=== PATIENT | male | born 1935 | race Caucasian/White ===

== ENCOUNTER 2020-06-21 10:23 | Inpatient (IN) | payer MEDICARE ==
[~2020-06-21 10:23] MED LIST: Iopamidol-370 76% 500 ML 1 ML ONE
--- NOTE | 2020-06-21 10:42 | RAD ---
XR Chest 1 View Portable History: Dyspnea Comparison: None. Findings: Heart size is enlarged. Large pleural effusions. Extensive airspace opacities throughout th e lungs. No pneumothorax. Possible right-sided calcified pleural plaques. Multiple pulmonary nodules. Impression: 1. Mild decompensated congestive heart failure. 2. Multiple pulmonary nodules concerning for metastasis. 3. Multiple right-sided calcified pleural plaques.
[2020-06-21 11:04] LABS: Hemoglobin 7.8 g/dL (14.0-18.0); Mean Corpuscular HGB CONC 29.6 g/dL (32.0-36.0); Mean Corpuscular Hemoglobin 20.5 pg (27.0-31.0); Mean Corpuscular Volume 69.4 fL (78.0-98.0); Mean Platelet Volume 8.2 fL (7.4-10.4); Platelet Count 380 thou/uL (130-400); RBC Distribution Width 18.1 % (11.5-14.5)
[2020-06-21 11:19] LABS: ALT (SGPT) 48 U/L (8-55); AST (SGOT) 74 U/L (5-34); Albumin 2.8 g/dL (3.4-4.8); Alkaline Phosphatase 122 U/L (40-110); Anion Gap 16 mmol/L (10-20); BUN (Urea Nitrogen) 18 mg/dL (8.4-25.7); Bilirubin, Total 1.3 mg/dL (0.2-1.2); CK (CPK) 307 U/L (30-200); Calc. Creatinine Clearance 0 mL/min (70-130); Calcium 8.2 mg/dL (7.8-10.44); Carbon Dioxide 19 mmol/L (23-31); Chloride 100 mmol/L (98-107); Globulin 2.3 g/dL (2.4-3.5); Glucose 71 mg/dL (83-110); Lipase 7 U/L (8-78); Potassium 3.8 mmol/L (3.5-5.1); Protein, Total 5.1 g/dL (5.8-8.1); Sodium 131 mmol/L (136-145)
[2020-06-21 11:39] LABS: Burr Cells SLIGHT = 2-5 cells (100X) (0-1/hpf); Elliptocytes SLIGHT = 2-5 cells (100X) (0-1/hpf); Eosinophils 1 % (0-10); Hypochromia MODERATE=16-30 cells (100X) (0-5/hpf); Lymphocytes 29 % (21-51); MDiff Complete? YES; Microcytosis MODERATE=15-30 cells (100X) (0-5/hpf); Monocytes 8 % (0-10); Neutrophil 62 % (42-75); Ovalocytes SLIGHT = 2-5 cells (100X) (0-1/hpf); Platelet Morphology Comment Appears Adequate; Polychromasia SLIGHT = 2-3 cells (100X) (0-2/hpf); Reflex for Review?? NO
--- NOTE | 2020-06-21 13:54 | CT ---
CT HEAD WITHOUT CONTRAST: INDICATION: Trauma. Further history states falling with injury to the head and face. FINDINGS: There is mild cortical volume loss. There is no evidence of intracranial hemorrhage. No mass or inf arct. Sinuses and mastoids are clear. There is no evidence of fracture. IMPRESSION: No acute abnormality identified. POS: AGW
--- NOTE | 2020-06-21 16:05 | CT ---
CT CHEST, ABDOMEN, AND PELVIS WITH CONTRAST: Indications: Fall with trauma and injury to chest and abdomen. Comparison: CT abdomen/pelvis, 06-08-2020. That exam revealed numerous pulmonary nodules in the lung b ases with bilateral effusions. Liver lesions were present on that exam. FINDINGS: CT CHEST: There is cardiomegaly with vascular congestion. Large bilateral effusions appear unchanged from 2020. There are numerous pulmonary nodules bilaterally. There is a large area of confluent opacity in the right upper lobe measuring up to 4 cm and there is a focal area of confluent opacity in the left upper lobe measuring 3.4 cm. There are other areas of confluent opacity seen in the middle lobes and lower lobes. These areas of confluent opacity probably represent dense areas of consolidation rather than mass lesions, although a large mass lesion associated with the other numerous nodules may be pr esent. There is dense bibasilar compressive atelectasis with air bronchograms associated with these l arge effusions. Mediastinum shows adenopathy in the mediastinum and hilar regions. Osseous structures show osteopenia. The vertebral bodies maintain height. No definite acute rib fract ure. IMPRESSION: 1. Large bilateral effusions and numerous bilateral pulmonary nodules consistent with diffuse pulmona ry mets as noted on the recent CT abdomen/pelvis of 06-08-2020. There are scattered areas of focal con solidation throughout the lungs which could represent areas of consolidated pneumonia, atelectasis or metastatic lesions. 2. There is mediastinum and hilar adenopathy. CT ABDOMEN AND PELVIS: There are numerous low density lesions in the liver which were noted on recent CT and are unchanged. Spleen and pancreas unremarkable. Large left renal cyst is stable. Aorta is calcified without aneurysm. Small bowel loops are normal caliber. Mucosal prominence and luminal narrowing in the region of the rectum is noted as described on the rec ent exam. Neoplasm at this site should be excluded. The CT abdomen/pelvis has not significantly changed when compared to 06-08-2020 exam. IMPRESSION: 1. No acute process. Stable findings when compared to 06-08-2020. 2. Findings were discussed with Dr. Cadena. POS: AGW
[2020-06-21] MEDS ORDERED: HYDROcodone/Acetaminophen 5/325 mg Tablet ONE (16:12)
[2020-06-21] MEDS ORDERED: Furosemide 40 MG/4 ML VIAL ONE (17:04)
[2020-06-21] MEDS ORDERED: Aspirin Chewable 81 MG TAB ONE (17:07)
[2020-06-21] MEDS ORDERED: Acetaminophen 650 MG Suppository PR PRN (18:09)
[2020-06-21] MEDS ORDERED: Furosemide 40 MG/4 ML VIAL SLOW IVP SCH (18:30)
[2020-06-21 18:34] LABS: Troponin I 0.018 ng/mL (< 0.028)
[2020-06-21] MEDS: Famotidine 20 MG TAB PO SCH (22:30)
--- NOTE | 2020-06-21 23:13 | PDOC.HHP ---
Hospitalist HPI History of Present Illness: ADMISSION DATE:06/21/20 TIME OF ASSESSMENT:1800 PRIMARY CARE PHYSICIAN:Dr. Muro CHIEF COMPLAINT: SOB and weakness HPI: This is an 84-year-old gentleman who presents to the emergency department complaints of shortness of breath which has progressively worsened over the last 2 to 3 days. The patient apparently has also been experiencing generalized weakness and has had multiple falls for the last 2 weeks. He did sustain an injury to his head but denies any loss of consciousness. He states that he does not experience any preceding chest pain, lightheadedness or dizziness but feels that his legs suddenly give out. Denies any extremity numbness. He notices weakness being more prevalent in the right knee. He states his breathing has significantly improved since arriving to the emergency department after given medications. He was placed on supplemental oxygen on 2 L by nasal cannula which was then increased to 6 L due to sats being in the low 90s. Currently his saturations have maintained in the 95 to 96% range. He denies having any recent cough, hemoptysis or any fevers, chills or sweats. States he was told in May that he had changes consistent with asbestosis exposure on imaging obtained by his primary care physician. 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 He did not have any further work-up associated with this. Patient also reports having a cardiac stress test done recently and states he was not able to complete the test due to severe orthopnea. He states this tends to be an issue at home which has started in the last week or so causing him difficulty sleeping at night. He has started sleeping while sitting upright. He has noted increasing lower remedy edema. Denies being on diuretics in the past. Denies any known history of heart failure. ROS: He reports having abdominal distention and bloating with minimal flatus but denies having any nausea or vomiting. Is had minimal p.o. intake due to a decreased appetite and has had a significant amount of weight loss. Denies any abdominal pain or cramping. No urinary symptoms. All other review of systems apart from what is mentioned above are negative. ED COURSE: Initial presentation the patient had sats of 92% on room air and is now at 95% on 6 L by nasal cannula. His blood pressure has ranged from 109-118 systolic. An EKG was done showing A. fib with controlled ventricular response, heart rate of 73. Patient denies any known history of A. fib. Due to head injuries with the frequent falls the last several days he had a CT of the head done which showed no acute abnormality. He had a chest x-ray done demonstrating mild decompensated CHF with multiple pulmonary nodules concerning for metastasis and multiple right-sided calcified pleural plaques. Further imaging obtained with a CT of the chest abdomen and pelvis demonstrated large bilateral effusions and numerous bilateral pulmonary nodules consistent with diffuse pulmonary metastases which were seen on imaging done June 08, 2020. There are scattered areas of focal consolidation throughout the lungs felt to represent areas of consolidated pneumonia, atelectasis or metastatic lesions. There was hilar and mediastinal adenopathy. No acute findings in the abdomen or pelvis but there were numerous low-density lesions in the liver that appeared stable compared to prior CT. Also prominence and luminal narrowing in the region of the rectum noted once again. There is a question of whether or not the patient has a diagnosis of metastatic rectal cancer but apparently no investigations or further work-up was done since he imaging done in May. Patient expresses very little knowledge of plans to undergo any type of work-up blood along treatment but open to being evaluated by the oncology team. The emergency department the patient received 324 mg of aspirin. Had been given a dose of furosemide 40 mg IV. Also received hydrocodone 5/325 mg p.o. Allergies/Adverse Reactions: Allergy/AdvReac Type Severity Reaction Status Date / Time No Known Allergies Allergy Verified 06/21/20 17:41 Past History: PAST MEDICAL HISTORY: 1. Hyperlipidemia 2. Hypertension PAST SURGICAL HISTORY: 1. Cholecystectomy SOCIAL HISTORY: He lives alone and is independent at baseline however due to general deconditioning and abnormal weight loss for the last several days with r ecurrent falls his grandson is working on getting a tubing assembler to watch over him at home. He reports smoking in the past but quit 40 years ago. Denies any alcohol consumption or drug use. Reports exposure to asbestosis. FAMILY HISTORY: Noncontributory Hospitalist Exam General Appearance: NAD, awake alert Eye: PERRL, anicteric sclera ENT: normocephalic atraumatic, no oropharyngeal lesions Neck: supple, no lymphadenopathy Heart: normal peripheral pulses, irregular Respiratory: no wheezes, normal chest expansion, no tachypnea Respiratory - other findings: Diminished at the bilteral bases Gastrointestinal: soft, non-tender, no guarding, diminished bowl sounds Gastrointestinal - other findings: abdomen distended Hospitalist Results Result Diagrams: 06/21/20 10:44 06/21/20 10:44 Lab results: Laboratory Last Values WBC 12.0 thou/uL (4.8-10.8) H 06/21/20 10:44 RBC 3.80 mill/uL (4.70-6.10) L 06/21/20 10:44 Hgb 7.8 g/dL (14.0-18.0) L 06/21/20 10:44 Hct 26.4 % (42.0-52.0) L 06/21/20 10:44 MCV 69.4 fL (78.0-98.0) L 06/21/20 10:44 MCH 20.5 pg (27.0-31.0) L 06/21/20 10:44 MCHC 29.6 g/dL (32.0-36.0) L 06/21/20 10:44 RDW 18.1 % (11.5-14.5) H 06/21/20 10:44 Plt Count 380 thou/uL (130-400) 06/21/20 10:44 MPV 8.2 fL (7.4-10.4) 06/21/20 10:44 Neutrophils % (Manual) 62 % (42-75) 06/21/20 10:44 Lymphocytes % (Manual) 29 % (21-51) 06/21/20 10:44 Monocytes % (Manual) 8 % (0-10) 06/21/20 10:44 Eosinophils % (Manual) 1 % (0-10) 06/21/20 10:44 Lymphocytes # Not Reportable 06/21/20 10:44 Hypochromia MODERATE=16-30 cells (100X) (0-5/hpf) H 06/21/20 10:44 Plt Morphology Comment Appears Adequate 06/21/20 10:44 Polychromasia SLIGHT = 2-3 cells (100X) (0-2/hpf) 06/21/20 10:44 Microcytosis MODERATE=15-30 cells (100X) (0-5/hpf) H 06/21/20 10:44 Ovalocytes SLIGHT = 2-5 cells (100X) (0-1/hpf) 06/21/20 10:44 [place] Cells SLIGHT = 2-5 cells (100X) (0-1/hpf) 06/21/20 10:44 Elliptocytes SLIGHT = 2-5 cells (100X) (0-1/hpf) 06/21/20 10:44 Acanthocytes (Spur) SLIGHT = 1-5 cells (100X) (None Seen) 06/21/20 10:44 Sodium 131 mmol/L (136-145) L 06/21/20 10:44 Potassium 3.8 mmol/L (3.5-5.1) 06/21/20 10:44 Chloride 100 mmol/L (98-107) 06/21/20 10:44 Carbon Dioxide 19 mmol/L (23-31) L 06/21/20 10:44 Anion Gap 16 mmol/L (10-20) 06/21/20 10:44 BUN 18 mg/dL (8.4-25.7) 06/21/20 10:44 Creatinine 0.61 mg/dL (0.7-1.3) L 06/21/20 10:44 Estimated GFR (MDRD) Greater than 90 06/21/20 10:44 Glucose 71 mg/dL (83-110) L 06/21/20 10:44 POC Glucose 81 mg/dL (70-100) 06/21/20 20:56 Calcium 8.2 mg/dL (7.8-10.44) 06/21/20 10:44 Total Bilirubin 1.3 mg/dL (0.2-1.2) H 06/21/20 10:44 AST 74 U/L (5-34) H 06/21/20 10:44 ALT 48 U/L (8-55) 06/21/20 10:44 Alkaline Phosphatase 122 U/L (40-110) H 06/21/20 10:44 Creatine Kinase 307 U/L (30-200) H 06/21/20 10:44 Troponin I 0.018 ng/mL (< 0.028) 06/21/20 17:38 B-Natriuretic Peptide 523.4 pg/mL (0-100) H 06/21/20 10:44 Serum Total Protein 5.1 g/dL (5.8-8.1) L 06/21/20 10:44 Albumin 2.8 g/dL (3.4-4.8) L 06/21/20 10:44 Globulin 2.3 g/dL (2.4-3.5) L 06/21/20 10:44 Albumin/Globulin Ratio 1.2 g/dL (1.2-2.2) 06/21/20 10:44 Lipase 7 U/L (8-78) L 06/21/20 10:44 CT scan - chest Status: report reviewed by ct Hospitalist H&P A/P (1) Acute respiratory failure with hypoxia Code(s): J96.01 - ACUTE RESPIRATORY FAILURE WITH HYPOXIA Status: Acute (2) CHF exacerbation Code(s): I50.9 - HEART FAILURE, UNSPECIFIED Status: Acute (3) Lung metastasis Code(s): C78.00 - SECONDARY MALIGNANT NEOPLASM OF UNSPECIFIED LUNG Status: Acute (4) Generalized weakness Code(s): R53.1 - WEAKNESS Status: Acute (5) Multiple falls Code(s): R29.6 - REPEATED FALLS Status: Acute (6) Recent head injury Code(s): S09.90XA - UNSPECIFIED INJURY OF HEAD, INITIAL ENCOUNTER Status: Acute (7) Abdominal bloating Code(s): R14.0 - ABDOMINAL DISTENSION (GASEOUS) Status: Chronic (8) Hypertension, essential Code(s): I10 - ESSENTIAL (PRIMARY) HYPERTENSION Status: Chronic (9) Hyperlipidemia Code(s): E78.5 - HYPERLIPIDEMIA, UNSPECIFIED Status: Chronic (10) Abnormal weight loss Code(s): R63.4 - ABNORMAL WEIGHT LOSS Status: Chronic (11) Anemia Code(s): D64.9 - ANEMIA, UNSPECIFIED Status: Acute Plan: ARF with hypoxia- with underlying CHF exacerbation and lung metastasis Monitor O2 sats Lasix given in ED, give additional Lasix New onset CHF Continue cardiac monitoring Cardiology consult Echo ordered Metastatic lung and liver cancer, primary unknown, possibly rectal tumor Oncology consult Pulmonary consult May benefit from thoracentesis NPO at midnight Consider repeat CXR to assess for underlying pneumonia Palliative care consult for complex decision making and advanced directives (per patient request) Repeat LFTs with morning labs including direct bili Recurrent falls, likely secondary to generalized weakness PT/OT consulted Falls precaution Orthostatic BPs ordered Abnormal loss of weight- secondary to decreased appetite and underlying malignancy Batch Plant Supervisor consult placed Heart healthy diet initiated Hypertension Hold antihypertensives, given low BP Hyperlipidemia Hold statin, given transaminitis Anemia Check H/H Q6H Check stool for occult blood Iron studies ordered GI Prophylaxis with Famotidine DVT Prophylaxis with mechanical SCDs Case discussed with attending who agrees with plan as above.
[2020-06-21 23:31] VITALS: BMI 23.0
[2020-06-22] MEDS ORDERED: Dextrose 50% Abboject 50 ML SYRINGE ONE (04:00)
[2020-06-22] MEDS ORDERED: Dextrose 50% Abboject 50 ML SYRINGE SLOW IVP SCH (04:15)
[2020-06-22 04:31] LABS: Band 3 % (5-11); Bilirubin, Direct 0.6 mg/dL (0.1-0.3); Eosinophils 2 % (0-10); Hemoglobin 8.4 g/dL (14.0-18.0); Lymphocytes 20 % (21-51); MDiff Complete? YES; Mean Corpuscular Hemoglobin 20.9 pg (27.0-31.0); Mean Corpuscular Volume 69.5 fL (78.0-98.0); Mean Platelet Volume 9.1 fL (7.4-10.4); Monocytes 9 % (0-10); Neutrophil 63 % (42-75); Platelet Count 324 thou/uL (130-400); Platelet Morphology Comment Appears Adequate; RBC Distribution Width 18.6 % (11.5-14.5); White Blood Cell (WBC) Count 12.1 thou/uL (4.8-10.8)
[2020-06-22 04:35] LABS: ALT (SGPT) 49 U/L (8-55); AST (SGOT) 76 U/L (5-34); Albumin 2.9 g/dL (3.4-4.8); Alkaline Phosphatase 129 U/L (40-110); Anion Gap 17 mmol/L (10-20); BUN (Urea Nitrogen) 15 mg/dL (8.4-25.7); Bilirubin, Total 1.3 mg/dL (0.2-1.2); Calc. Creatinine Clearance 105 mL/min (70-130); Carbon Dioxide 18 mmol/L (23-31); Chloride 99 mmol/L (98-107); Globulin 2.5 g/dL (2.4-3.5); Iron 16 ug/dL (65-175); Iron Binding Capacity, Total 310 mcg/dL (261-462); Magnesium 1.6 mg/dL (1.6-2.6); Protein, Total 5.4 g/dL (5.8-8.1); Sodium 130 mmol/L (136-145)
[2020-06-22 04:41] LABS: Glucose 58 mg/dL (83-110)
[2020-06-22 05:11] LABS: Ferritin 77.88 ng/mL (22-322)
[2020-06-22 05:14] LABS: Vitamin B12 Greater than 2000 pg/mL (211-911)
[2020-06-22] MEDS: Furosemide 40 MG/4 ML VIAL SLOW IVP SCH ×2 (05:54→13:48)
[2020-06-22 06:01] LABS: SARS-CoV-2 PCR by NAA Not Detected (NotDetected)
[2020-06-22] MEDS: Famotidine 20 MG TAB PO SCH ×2 (08:09→21:12)
[2020-06-22] MEDS ORDERED: Dextrose 5% in Water 1,000 ML IV PRN (09:00)
[2020-06-22] MEDS ORDERED: Dextrose 50% Abboject 50 ML SYRINGE IVP PRN (09:00)
--- NOTE | 2020-06-22 11:10 | RAD ---
XR Chest 1 View Portable History: Thoracentesis Comparison: Radiograph prior day Findings: Interval size decrease right layering pleural effusion. Moderate left layering pleural effu carlee. Pulmonary nodules and airspace opacities are similar. Impression: Size decreased right layering pleural effusion without pneumothorax.
[2020-06-22 11:30] LABS: Fluid, Triglycerides Less than 11 mg/dL (Not Available); Pleural Fluid, Amylase Less than 30 U/L (Not Available); Pleural Fluid, Glucose 93 mg/dL; Pleural Fluid, LDH 112 U/L (Not Available); Pleural Fluid, Protein 1.5 g/dL
--- NOTE | 2020-06-22 11:31 | CON ---
DATE OF CONSULTATION: 06/21/2020 REASON FOR CONSULT: Suspected rectal cancer. HISTORY OF PRESENT ILLNESS: Mr. Rodas is an 84-year-old gentleman who was admitted via the emergency room last night for shortness of breath and weakness and general failure to thrive. He has had some issues with fecal incontinence with urination for several months. He denies any bleeding. He has had multiple falls recently. Apparently, he had some type of testing at the [facility], where he had to drink a lot of liquids. He describes this as a stress test, but it sounds like some type of imaging procedure. He does not know the results of that. Here, he was admitted and found to have a large effusion. X-ray showed metastatic disease in his chest. He has had heart failure with atrial fibrillation. He has had a history of COPD as well. He was a smoker until the mid 1960s. A CAT scan of abdomen and pelvis and chest performed yesterday shows multiple liver mets, multiple lung mets, hilar adenopathy, and a rectal mass. PAST MEDICAL HISTORY: Hypertension, hyperlipidemia, CHF, atrial fibrillation, and COPD. PAST SURGICAL HISTORY: Cholecystectomy. SOCIAL HISTORY: The patient lives alone. Multiple falls. Grandson is trying to get some of the watch over him. He used to drink alcohol, but had not in many years. He used to smoke. He has prior asbestos exposure. FAMILY HISTORY: Noncontributory. ALLERGIES: NONE KNOWN. MEDICATIONS: At home; 1. Metoprolol. 2. Aspirin. 3. Amlodipine. Medications here; 1. Tylenol. 2. IV fluid. 3. Pepcid. 4. Furosemide . PHYSICAL EXAMINATION: GENERAL: He is cachectic, short of breath, coughs during our conversation. He looks chronically ill. He has severe temporal wasting, wasting of the supra and infraspinatus muscles in the back. LUNGS: Decreased breath sounds bilaterally with decreased specifically at the right base. NECK: Supple without any adenopathy. HEART: Regular rate and rhythm. ABDOMEN: Slightly protuberant with no shifting dullness or fluid wave. EXTREMITIES: Reveal no clubbing, cyanosis, or edema. SKIN: He has no spider angiomata. His breath is fruity, almost like fetor hepaticus. RECTAL: Reveals a large rectal mass, fungating. LABORATORY DATA: White count 12, hemoglobin 8.4, MCV 69, platelet count 324. Sodium 130, potassium is 4, BUN and creatinine are 15 and 0.5. Folate 16, B12 greater than 2000. Iron 16, saturation 5%. ASSESSMENT: This is an 84-year-old gentleman with metastatic rectal cancer. RECOMMENDATIONS: If Oncology is going to treat, we can proceed with flexible sigmoidoscopy for diagnosis. I think the diagnosis is pretty clear based on exam and imaging studies. This is advanced disease, stage IV. At this time, he is not in any shape for endoscopy right now with his current respiratory condition, heart failure, and effusions. We will follow along with you. Job ID: [id number]
[2020-06-22 12:01] LABS: RBC Count-Automated (BF) 597 /cu.mm; WBC/Nucleated-Auto (BF) 450 uL
[2020-06-22 12:02] LABS: Body Fluid Source Thoracentesis Fluid
[2020-06-22 12:03] LABS: BF Color Yellow; Clarity Hazy (Clear); Tube # EDTA
--- NOTE | 2020-06-22 12:26 | CON ---
DATE OF CONSULTATION: HISTORY OF PRESENT ILLNESS: This is an 84-year-old cachectic gentleman, who apparently underwent some kind of a stress test, which was interrupted by him having shortness of breath. He has had lower extremity swelling. X-ray shows bilateral pleural effusion and bilateral lung mass. He is now in the hospital. He smoked a pack a day for 40 years, but quit many years ago. 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 He has been losing about 25 pounds. PAST MEDICAL HISTORY: Hyperlipidemia, hypertension. PAST SURGICAL HISTORY: Cholecystectomy. CHRONIC MEDICATIONS: 1. Toprol-XL 25. 2. Aspirin. 3. Amlodipine 2.5. ALLERGIES: NONE. SOCIAL HISTORY: Unremarkable. FAMILY HISTORY: Unremarkable. REVIEW OF SYSTEMS: Negative. PHYSICAL EXAMINATION: VITAL SIGNS: Temperature 97, pulse 68, respiratory rate 18, saturations 97% on room air, blood pressure 106/54. CHEST: Decreased breath sounds, right lower two-thirds, left base. No wheezing. No crackles. CARDIAC: Normal S1 and S2. No gallops. ABDOMEN: No masses. LABORATORY DATA: White count 12,000; H and H 8 and 27; platelet count is normal. Sodium 130, glucose 58. Calcium was normal. He had CT chest, abdomen, and pelvis done, which showed the large bilateral pleural effusion, bilateral pulmonary nodules, mediastinal and hilar adenopathy. ASSESSMENT: 1. Bilateral multiple lung nodules and pleural effusion, rule out metastatic disease. 2. Hypertension. PLAN: A thoracentesis will be done. Further recommendations thereafter. In the meantime, continue supportive care. Consultation note, 70 minutes, 50% direct patient care. Job ID: [id number]
--- NOTE | 2020-06-22 12:35 | OP ---
DATE OF PROCEDURE: 06/22/2020 PROCEDURE PERFORMED: Thoracentesis. DESCRIPTION OF PROCEDURE: After informed consent, the right posterior thorax was cleaned with chlorhexidine. 1% lidocaine was infiltrated into the right 8th intercostal space in the midscapular line. Pleural cavity was entered in. 10 mL of turbid yellow fluid was removed initially. Using an 8-Greek catheter, a total of about 1600 mL of fluid was removed without difficulty. The patient tolerated the procedure well. Job ID: [id number]
[2020-06-22 12:46] LABS: BF Segmented Neutrophils 25 %; Cell Count Non Hematic 50 %; Lymphocytes 25 %
--- NOTE | 2020-06-22 15:32 | PDOC.FMACP ---
Advance Care Planning - Problem (1) Palliative care encounter Status: Acute Code(s): Z51.5 - ENCOUNTER FOR PALLIATIVE CARE (2) Acute respiratory failure with hypoxia Status: Acute Code(s): J96.01 - ACUTE RESPIRATORY FAILURE WITH HYPOXIA (3) Anemia Status: Acute Code(s): D64.9 - ANEMIA, UNSPECIFIED (4) CHF exacerbation Status: Acute Code(s): I50.9 - HEART FAILURE, UNSPECIFIED (5) Generalized weakness Status: Acute Code(s): R53.1 - WEAKNESS (6) Lung metastasis Status: Acute Code(s): C78.00 - SECONDARY MALIGNANT NEOPLASM OF UNSPECIFIED LUNG (7) Multiple falls Status: Acute Code(s): R29.6 - REPEATED FALLS (8) Abnormal weight loss Status: Chronic Code(s): R63.4 - ABNORMAL WEIGHT LOSS - Note Participants: patient, palliative care Summary: Palliative care introduced Advanced Care Planning. The diagnosis, prognosis and goals of care were discussed. Appropriate forms and documentation to accomplish the goals of care were discussed. All questions were answered. Confirmed DNAR OOHDNAR signed and on patient chart Mr Rodas also completed MPOA and Directive to Physician. Originals given to patient as well as copies placed on chart for medical records. Awaiting pathology to determine Goals of Care Palliative Care will follow up and assist in complex decision making and Goal of care. Please refer to Palliative Care notes in note section Time Spent (mins): 20
[2020-06-22] MEDS: Iron, Sodium Ferric Gluconate 250 MG in Sodium Chloride 0.9% 100 ML IVPB SCH (16:07)
--- NOTE | 2020-06-22 17:48 | PDOC.HOSPP ---
- Subjective Encounter Date: 06/22/20 Encounter Time: 11:00 Subjective: Patient seen for follow-up regarding acute hypoxic respiratory failure. Reports feeling better. - Objective Vital Signs & Weight: Vital Signs (12 hours) Temp Pulse Pulse Pulse Resp BP BP 06/22/20 15:21 97.5 F L 81 18 06/22/20 14:06 71 114/56 L 06/22/20 11:06 97.4 F L 83 20 06/22/20 09:40 68 79 112/55 L 136/63 06/22/20 07:37 97.4 F L 61 18 BP Pulse Ox 06/22/20 15:21 128/60 97 06/22/20 14:06 06/22/20 11:06 124/58 L 99 06/22/20 09:40 06/22/20 07:37 106/54 L 97 Weight Admit Weight 170 lb Weight 170 lb Result Diagrams: 06/22/20 03:54 06/22/20 03:54 Additional Labs: Accuchecks 06/22/20 06/22/20 06/22/20 16:46 12:25 10:57 POC Glucose 89 78 85 06/22/20 06/22/20 06/22/20 08:39 08:11 06:19 POC Glucose 183 H 68 L 90 06/22/20 06/22/20 06/22/20 04:57 03:17 00:16 POC Glucose 108 H 56 L* 58 L* 06/21/20 20:56 POC Glucose 81 Labs and MAR reviewed by me EKG Reviewed by me: Yes (Telemetry shows normal sinus rhythm) Hospitalist ROS - Review of Systems Respiratory: reports: SOB with excertion Cardiovascular: denies: chest pain, palpitations, orthopnea, paroxysmal noc. dyspnea, edema, light headedness - Medication Medications: Active Medications Generic Name Dose Route Start Last Admin Trade Name Freq PRN Reason Stop Dose Admin Dextrose/Water 25 gm 06/22/20 09:00 06/22/20 08:20 Dextrose 50% Abboject 50 Ml Syringe IVP 25 gm PRN PRN Administration HYPOGLYCEMIA PROTOCOL Famotidine 20 mg 06/21/20 21:00 06/22/20 08:09 Famotidine 20 Mg Tab PO 20 mg BID CARISSA Administration Furosemide 40 mg 06/22/20 06:00 06/22/20 13:48 Furosemide 40 Mg/4 Ml Vial SLOW IVP 40 mg 0600,1400 CARISSA Administration Ferric Sodium Gluconate 120 mls @ 60 mls/hr 06/22/20 16:00 06/22/20 16:07 Complex 250 mg/ Sodium IVPB 06/23/20 17:59 120 mls Chloride 1600 CARISSA Administration Hospitalist Exam Vitals: Vital Signs (12 hours) Temp Pulse Pulse Pulse Resp BP BP 06/22/20 15:21 97.5 F L 81 18 06/22/20 14:06 71 114/56 L 06/22/20 11:06 97.4 F L 83 20 06/22/20 09:40 68 79 112/55 L 136/63 06/22/20 07:37 97.4 F L 61 18 BP Pulse Ox 06/22/20 15:21 128/60 97 06/22/20 14:06 06/22/20 11:06 124/58 L 99 06/22/20 09:40 06/22/20 07:37 106/54 L 97 Weight Admit Weight 170 lb Weight 170 lb General Appearance: awake alert Eye: anicteric sclera ENT: normocephalic atraumatic Neck: supple Heart: RRR Respiratory: CTAB Respiratory - other findings: diminished air entry alonzo bases Gastrointestinal: soft Extremities: no cyanosis Skin: normal turgor Musculoskeletal: normal tone Psychiatric: normal affect Hosp A/P - Plan (1) Acute respiratory failure with hypoxia Code(s): J96.01 - ACUTE RESPIRATORY FAILURE WITH HYPOXIA Status: Acute (2) CHF exacerbation Code(s): I50.9 - HEART FAILURE, UNSPECIFIED Status: Acute (3) Lung metastasis Code(s): C78.00 - SECONDARY MALIGNANT NEOPLASM OF UNSPECIFIED LUNG Status: Acute (4) Generalized weakness Code(s): R53.1 - WEAKNESS Status: Acute (5) Multiple falls Code(s): R29.6 - REPEATED FALLS Status: Acute (6) Recent head injury Code(s): S09.90XA - UNSPECIFIED INJURY OF HEAD, INITIAL ENCOUNTER Status: Acute (7) Abdominal bloating Code(s): R14.0 - ABDOMINAL DISTENSION (GASEOUS) Status: Chronic (8) Hypertension, essential Code(s): I10 - ESSENTIAL (PRIMARY) HYPERTENSION Status: Chronic (9) Hyperlipidemia Code(s): E78.5 - HYPERLIPIDEMIA, UNSPECIFIED Status: Chronic (10) Abnormal weight loss Code(s): R63.4 - ABNORMAL WEIGHT LOSS Status: Chronic (11) Anemia Code(s): D64.9 - ANEMIA, UNSPECIFIED Status: Acute Plan: Patient appears to have metastatic colon cancer with metastasis to lungs and liver. Appreciate GI and pulmonology services input. Await cytology of pleural fluid. Palliative care following as well. Patient wishes to be DNAR. Continue IV furosemide. Resume amlodipine and metoprolol, monitor vital signs and titrate antihypertensives as needed. DVT prophylaxis with SCDs.
--- NOTE | 2020-06-22 20:53 | CON ---
DATE OF CONSULTATION: 06/22/2020 REASON FOR CONSULTATION: Shortness of breath. HISTORY OF PRESENT ILLNESS: Mr. Rodas is an 84-year-old gentleman, whom I have seen and evaluated in the past. He recently presented to my office with shortness of breath. He did have risk factors for underlying coronary artery disease. He is to undergo a noninvasive stress study. This has been scheduled, but not performed. He did have an echo performed that showed a normal LVEF. Upon presentation, he was found to have a large pleural effusion. He was also found to be anemic. There was also extensive studies suggesting metastatic cancer, which is a new finding. PAST MEDICAL HISTORY: Hypertension, hyperlipidemia, atrial flutter, acid reflux, mitral regurgitation. HOME MEDICATIONS: Include: 1. Triamterene/hydrochlorothiazide. 2. Aspirin. 3. Metoprolol. 4. Amlodipine. SURGICAL HISTORY: Cholecystectomy. SOCIAL HISTORY: Positive caffeine use. No tobacco or alcohol use. REVIEW OF SYSTEMS: A 10-point review of systems is reviewed as above, otherwise negative. PHYSICAL EXAMINATION: GENERAL: Patient is a pleasant gentleman, who is in no acute distress. He does appear older than stated age and underweight. VITAL SIGNS: Blood pressure 128/60, pulse 81, temperature 97.5. NEUROLOGIC: The patient is alert and oriented x3 with no focal neurologic deficits. HEENT: Sclerae without icterus. Mouth has moist mucous membranes with normal pallor. NECK: No JVD. Carotid upstroke brisk. No bruits bilaterally. LUNGS: Clear to auscultation with unlabored respirations. BACK: No scoliosis or kyphosis. CARDIAC: Regular rate and rhythm with normal S1 and S2. No S3 or S4 noted. No significant rubs, murmurs, thrills, or gallops noted throughout the precordium. PMI is not displaced. There is no parasternal heave. ABDOMEN: Soft, nontender, nondistended. No peritoneal signs present. No hepatosplenomegaly. No abnormal striae. EXTREMITIES: 2+ femoral and 2+ dorsalis pedis pulses. No cyanosis, clubbing, or edema. SKIN: No gross abnormalities. PERTINENT LABORATORY DATA: Hemoglobin is 7.8, white blood cell count 12.1. IMPRESSION: 1. Shortness of breath. 2. Anemia. 3. Metastatic cancer. 4. Pleural effusion. RECOMMENDATIONS: 1600 mL of yellow clear fluid removed from his lung recently by Dr. Dante Quezada. This is likely secondary to diastolic dysfunction. I would feel this would be consistent with metastatic cancer, but appeared to be clear. Awaiting cytology. Based on his current comorbidities including metastatic cancer, would continue with conservative therapy. The patient is currently DNR, would agree. May need to proceed with diagnosis of cancer that will change his outcome. Job ID: [id number]
[2020-06-22] MEDS ORDERED: FLU VACC QS2020-21(65YR UP)/PF 240 MCG/0.7 ML SYRINGE IM ONE (21:00)
[2020-06-22] MEDS: Acetaminophen 325 MG TAB PO PRN (21:12)
--- NOTE | 2020-06-22 21:27 | CON ---
DATE OF CONSULTATION: REASON FOR CONSULT: Metastatic disease. HISTORY OF PRESENT ILLNESS: Mr. Rodas is a pleasant 84-year-old gentleman who was brought to the emergency room with shortness of breath and progressive weakness over the last several days. He has had multiple falls in in the last several weeks. He was seen by his primary care doctor, Jina, and was undergoing evaluation. [facility] and when compared to the CT scan done in the ER, it showed numerous pulmonary nodules, bilateral pleural effusions, and liver lesions. There was also a mediastinal and hilar lymphadenopathy. There was a rectal mass noted. The patient was seen by Dr. Quezada and had a thoracentesis performed. His breathing improved tremendously. He was seen by Dr. Cotto, who performed a rectal exam and noted the rectal mass. The patient is cachectic, lives alone. Prior history of smoking. We were asked to see the patient regarding his metastatic disease. PAST MEDICAL HISTORY: 1. Hypertension. 2. Hyperlipidemia. 3. Congestive heart failure. 4. Atrial fibrillation. 5. COPD. PAST SURGICAL HISTORY: Cholecystectomy. ALLERGIES: NO KNOWN DRUG ALLERGIES. HOME MEDICATIONS: 1. Aspirin. 2. Metoprolol. 3. Amlodipine. FAMILY HISTORY: Noncontributory. SOCIAL HISTORY: Lives alone. Recent falls. Remote history of smoking and alcohol use. 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 PHYSICAL EXAMINATION: VITAL SIGNS: Temperature 97.4, pulse is 83, respiratory rate 20, blood pressure is 124/58. He is 99% on room air. GENERAL: This is a thin male, in no acute distress. HEENT: Normocephalic and atraumatic. Pupils are equal and reactive to light. NECK: Supple. CV: Regular rate and rhythm. LUNGS: Clear anterior. ABDOMEN: Soft. Bowel sounds are positive. EXTREMITIES: No clubbing or cyanosis. NEUROLOGIC: Nonfocal. PERTINENT LABORATORY DATA AND X-RAYS: WBCs 12.1, hemoglobin 8.4, hematocrit 27.8, platelet count 324,000, he has 63% neutrophils, 3% bands, 20% lymphocytes. Sodium 130, potassium 4.0, chloride 99, CO2 is 18, BUN is 15, creatinine 0.58, calcium 8, magnesium 1.6. Iron 16, TIBC is 310, iron saturation is 5, ferritin is 77. Total bilirubin is 1.8, AST 76, ALT is 49, alkaline phosphatase is 129. BNP is 408. Serum total protein 5.4, albumin 2.9, globulin 2.5. B12 and folic acid normal. COVID PCR negative. Radiology per HPI. ASSESSMENT: 1. Rectal mass with liver lesions. 2. Pulmonary nodules in the mediastinal and hilar lymphadenopathy. 3. Bilateral pleural effusions. 4. Iron deficient anemia. DISCUSSION: The patient was seen at bedside with grandson at present. We discussed findings on CT scans. He understands that he most likely has a rectal cancer with metastatic disease, which would be treated with palliative chemotherapy. They understand that we would need a biopsy to confirm diagnosis and direct care. I would recommend having Palliative Care to see the patient to discuss goals of care further. He has iron deficient anemia with an MCV in the 60s. We will replete with IV iron in this admission. The patient and family would like to discuss options further. We will follow along with his hospitalization. Thank you for the consult. Job ID: [id number] EDU
[2020-06-23] MEDS: Furosemide 40 MG/4 ML VIAL SLOW IVP SCH ×2 (05:58→13:44)
[2020-06-23] MEDS: Amlodipine 5 MG TAB PO SCH (08:16)
[2020-06-23] MEDS: Aspirin Chewable 81 MG TAB PO SCH (08:22)
[2020-06-23] MEDS: Famotidine 20 MG TAB PO SCH ×2 (08:22→22:01)
--- NOTE | 2020-06-23 10:22 | PRG ---
DATE OF SERVICE: 06/23/2020 SUBJECTIVE: This morning, he is better, less short of breath. OBJECTIVE: VITAL SIGNS: Temperature 98, pulse 82, respiratory rate 18, saturations 100% on room air, blood pressure 113/56. CHEST: Decreased breath sounds. No wheezing. CARDIAC: Normal S1. No gallops. ABDOMEN: No masses. ASSESSMENT: Bilateral pleural effusion, right greater than left, was a transudate by numbers. PLAN: Await cytology results. I would switch him over to oral antibiotics. We will follow. Job ID: [id number]
--- NOTE | 2020-06-23 11:54 | PQF ---
CLINICAL DOCUMENTATION CLARIFICATION FORM: Dear Dr. Johnson Date: 06/23/20 Please exercise your independent, professional judgment in responding to the clarification form. Clinical indicators are provided on the bottom of this form for your review. Please check appropriate box(es): [ ] Protein Calorie Malnutrition: [ ] Mild [ ] Moderate [ ] Severe [ ] Other Malnutrition (please specify) [ ] Underweight without malnutrition [ ] Cachexia [ ] Other diagnosis [ ] Unable to determine In addition, please specify: Present on Admission (POA): [ ] Yes [ ] No [ ] Unable to determine For continuity of documentation, please document condition throughout progress notes and discharge summary. Thank You. To be completed by CDI/Coding staff for physician review: CLINICAL INDICATORS - SIGNS / SYMPTOMS / LABS / RESULTS AND LOCATION IN MR DIETARY ASSESSMENT 06/22: "POOR APPETITE AND SIGNIFICANT WEIGHT LOSS" DIETARY ASSESSMENT 06/23: "SEVERE CHRONIC MALNUTRITION. SEVERE MUSCLE TISSUE WASTING IN ISLAM, CLAVICLE, AND ACROMION REGIONS, MODERATE MUSCLE WASTING TO CALVES AND THIGHS, AND SEVERE ADIPOSE TISSUE WASTING TO ORBITAL REGION AND MODERATE ADIPOSE TISSUE WASTING TO UPPER ARM." BMI 23 RISK FACTORS / RESULTS AND LOCATION IN MR METASTATIC CANCER (DIETARY ASSESSMENT 06/23) TREATMENT / RESULTS AND LOCATION IN MR NUTRITIONAL SUPPLEMENTS RECOMMENDED (DIETARY ASSMT 06/23) Moderate Malnutrition (in acute illness) Energy Intake: <75% of estimated energy requirement for > 7 days Weight Loss: 1-2%/1 week; 5%/ 1 month; 7.5%/3 months Other: mild body fat loss; mild muscle mass loss; mild fluid accumulation; Severe Malnutrition (in acute illness) Energy Intake: = 50% of estimated energy requirement for = 5 days Weight Loss: >2%/1 week; >5%/1 month; >7.5%/3 months Other: moderate body fat loss; moderate muscle mass loss; moderate- severe fluid accumulation; measurably reduced machine filler shredder strength Moderate Malnutrition (in chronic illness) Energy Intake: <75% of estimated energy requirement for =1 month Weight Loss: 5%/1 month; 7.5%/3 months; 10%/6 months; 20%/1 year Other: mild body fat loss; mild muscle mass loss; mild fluid accumulation Severe Malnutrition (in chronic illness) Energy Intake: =75% of estimated energy requirement for =1 month Weight Loss: >5%/1 month; >7.5%/3 months; >10%/6 months; >20%/1 year Other: severe body fat loss; severe muscle mass loss; severe fluid accumulation; measurably reduced machine filler shredder strength CDS Signature: Darlene Valladares RN Phone #: [phone] Date: 06/23/20 This is a permanent part of the Medical Record [facility]
--- NOTE | 2020-06-23 15:14 | PDOC.MOPN ---
Interval History: patient have mild SOB. no pain. - Vital Signs Vital Signs: Vital Signs (12 hours) Temp Pulse Resp BP BP BP Pulse Ox 06/23/20 13:52 99 06/23/20 13:40 98.0 F 71 18 118/66 99 06/23/20 11:50 98.2 F 80 16 105/58 L 100 06/23/20 07:00 98.1 F 82 18 113/56 L 100 06/23/20 04:00 97.8 F 79 13 96/54 L 94/53 L 98/55 L 100 Weight Admit Weight 170 lb Weight 170 lb - Physical Exam General: Alert HEENT: Atraumatic Lungs: Other Cardiovascular: Regular rate Abdomen: Normal bowel sounds Neurological: Normal speech - Labs Result Diagrams: 06/22/20 03:54 06/22/20 03:54 Lab results: Laboratory Results - last 24 hr 06/23/20 10:57: POC Glucose 91 06/23/20 05:50: POC Glucose 82 06/23/20 03:31: Carcinoembryonic Ag 26.39 H 06/22/20 21:11: POC Glucose 103 H 06/22/20 16:46: POC Glucose 89 06/22/20 10:30: Fluid Diff Path Review Status: lab reviewed by me A/P - Problem (1) 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 palliative treatment would likely be FOLFOX with Avastan/Erbitux 3. would need mediport 4. Family to decide plan. Grandson not in room today.
--- NOTE | 2020-06-23 15:41 | PDOC.HOSPP ---
- Subjective Encounter Date: 06/23/20 Encounter Time: 08:30 Subjective: Patient seen for follow-up regarding hypoxic respiratory failure. He denies any chest pain. He denies fevers or chills. - Objective Vital Signs & Weight: Vital Signs (12 hours) Temp Pulse Resp BP BP BP Pulse Ox 06/23/20 13:52 99 06/23/20 13:40 98.0 F 71 18 118/66 99 06/23/20 11:50 98.2 F 80 16 105/58 L 100 06/23/20 07:00 98.1 F 82 18 113/56 L 100 06/23/20 04:00 97.8 F 79 13 96/54 L 94/53 L 98/55 L 100 Weight Admit Weight 170 lb Weight 170 lb Result Diagrams: 06/22/20 03:54 06/22/20 03:54 Additional Labs: Accuchecks 06/23/20 06/23/20 06/22/20 10:57 05:50 21:11 POC Glucose 91 82 103 H 06/22/20 16:46 POC Glucose 89 I reviewed patient's labs and MAR Hospitalist ROS - Review of Systems Respiratory: reports: cough, dry, SOB with excertion Cardiovascular: denies: chest pain, palpitations, orthopnea, paroxysmal noc. dyspnea, edema, light headedness Gastrointestinal: denies: nausea, vomiting, abdominal pain, diarrhea, constipation, melena - Medication Medications: Active Medications Generic Name Dose Route Start Last Admin Trade Name Freq PRN Reason Stop Dose Admin Acetaminophen 650 mg 06/21/20 18:09 06/22/20 21:12 Acetaminophen 325 Mg Tab PO 650 mg Q4H PRN Administration Headache/Fever/Mild Pain (1-3) Amlodipine Besylate 2.5 mg 06/23/20 09:00 06/23/20 08:16 Amlodipine 5 Mg Tab PO Not Given DAILY CARISSA Aspirin 81 mg 06/23/20 09:00 06/23/20 08:22 Aspirin Chewable 81 Mg Tab PO 81 mg DAILY CARISSA Administration Dextrose/Water 25 gm 06/22/20 09:00 06/22/20 08:20 Dextrose 50% Abboject 50 Ml Syringe IVP 25 gm PRN PRN Administration HYPOGLYCEMIA PROTOCOL Famotidine 20 mg 06/21/20 21:00 06/23/20 08:22 Famotidine 20 Mg Tab PO 20 mg BID CARISSA Administration Furosemide 40 mg 06/22/20 06:00 06/23/20 13:44 Furosemide 40 Mg/4 Ml Vial SLOW IVP 40 mg 0600,1400 CARISSA Administration Ferric Sodium Gluconate 120 mls @ 60 mls/hr 06/22/20 16:00 06/22/20 16:07 Complex 250 mg/ Sodium IVPB 06/23/20 17:59 120 mls Chloride 1600 CARISSA Administration Metoprolol Succinate 25 mg 06/23/20 09:00 06/23/20 08:16 Metoprolol Succinate Xl 25 Mg Tab PO Not Given DAILY [facility] Hospitalist Exam Vitals: Vital Signs (12 hours) Temp Pulse Resp BP BP BP Pulse Ox 06/23/20 13:52 99 06/23/20 13:40 98.0 F 71 18 118/66 99 06/23/20 11:50 98.2 F 80 16 105/58 L 100 06/23/20 07:00 98.1 F 82 18 113/56 L 100 06/23/20 04:00 97.8 F 79 13 96/54 L 94/53 L 98/55 L 100 Weight Admit Weight 170 lb Weight 170 lb General Appearance: awake alert ENT: normocephalic atraumatic Neck: supple Heart: RRR Respiratory - other findings: Diminished air entry both bases Gastrointestinal: soft Skin: no rashes Psychiatric: normal affect Hosp A/P - Plan (1) Acute respiratory failure with hypoxia Code(s): J96.01 - ACUTE RESPIRATORY FAILURE WITH HYPOXIA Status: Acute (2) Generalized weakness Code(s): R53.1 - WEAKNESS Status: Acute (3) Lung metastasis Code(s): C78.00 - SECONDARY MALIGNANT NEOPLASM OF UNSPECIFIED LUNG Status: Acute (4) Multiple falls Code(s): R29.6 - REPEATED FALLS Status: Acute (5) Recent head injury Code(s): S09.90XA - UNSPECIFIED INJURY OF HEAD, INITIAL ENCOUNTER Status: Acute (6) Abnormal weight loss Code(s): R63.4 - ABNORMAL WEIGHT LOSS Status: Chronic (7) Abdominal bloating Code(s): R14.0 - ABDOMINAL DISTENSION (GASEOUS) Status: Chronic (8) Hypertension, essential Code(s): I10 - ESSENTIAL (PRIMARY) HYPERTENSION Status: Chronic (9) Hyperlipidemia Code(s): E78.5 - HYPERLIPIDEMIA, UNSPECIFIED Status: Chronic (10) Anemia Code(s): D64.9 - ANEMIA, UNSPECIFIED Status: Acute (11) protein calorie malnutrition, severe Status: Chronic, present on admission (12) CHF exacerbation Code(s): I50.9 - HEART FAILURE, UNSPECIFIED Status: Ruled out Plan: Status post thoracentesis, await path report. Patient is on IV furosemide. Hypertension is controlled and stable. DVT prophylaxis with SCDs.
[2020-06-23] MEDS: Iron, Sodium Ferric Gluconate 250 MG in Sodium Chloride 0.9% 100 ML IVPB SCH (16:41)
--- NOTE | 2020-06-23 18:51 | PRG ---
DATE OF SERVICE: 06/23/2020 SUBJECTIVE: Mr. Rodas continues to feel better. He has a significant decrease in shortness of breath after recent thoracentesis. Unfortunately, the cytology was positive for malignancy. OBJECTIVE: VITAL SIGNS: Blood pressure 102/56, pulse 82, temperature 97.7. LUNGS: Clear to auscultation, although distant. HEART: Regular rate and rhythm. ABDOMEN: Soft, nontender, nondistended. EXTREMITIES: No edema. PERTINENT LABORATORY DATA: Hemoglobin 8.4. IMPRESSION: 1. Metastatic rectal cancer. 2. Shortness of breath. 3. Pleural effusion. 4. Anemia. RECOMMENDATIONS: Mr. Rodas unfortunately has a metastatic rectal adenocarcinoma. Prognosis appears poor. Negative treatment has been recommended by Oncology. Otherwise from my standpoint, I have no further recommendations. Please re-consult if needed. Job ID: [id number]
[2020-06-23] MEDS: Cefdinir 300 MG CAP PO SCH (22:01)
--- NOTE | 2020-06-23 23:50 | PRG ---
DATE OF SERVICE: 06/23/2020 REASON FOR CONSULTATION: Suspected rectal cancer. SUBJECTIVE: Today, the patient states that he is feeling much better after undergoing thoracentesis earlier today. He adds that his breathing has significantly improved when compared to previous. However, preliminary evaluation of the thoracentesis fluid showed the cytology was consistent with rectal adenocarcinoma. At this time, the patient is positive about his current clinical status and is considering treatment of this condition at this time. Currently, he denies any nausea, vomiting, fevers, chills, hematemesis, melena, or hematochezia. OBJECTIVE: VITAL SIGNS: Temperature 97.4, pulse 67, blood pressure 102/59, respiratory rate 18 saturating 96% on room air. GENERAL: The patient was lying in bed, in no acute distress. Alert and oriented x3. CARDIOVASCULAR: Regular rate and rhythm. RESPIRATORY: Clear to auscultation bilaterally. ABDOMEN: Normoactive bowel sounds. Soft, nontender. [id number] abdominal distention with no shifting dullness. EXTREMITIES: No cyanosis, clubbing, or edema. LABORATORY DATA: CEA of 26.3. Cytology of the pleural fluid obtained during thoracentesis shows the presence of adenocarcinoma. ASSESSMENT AND PLAN: The patient is an 84-year-old male with a past medical history of hypertension, hyperlipidemia, CHF, atrial fibrillation, and COPD, presenting with a large fungating rectal mass on rectal examination and now with imaging and pleural fluid findings consistent with metastatic rectal cancer. Metastatic rectal cancer. The patient initially presented to the hospital with increased shortness of breath, weakness, general failure to thrive and increased coughing. On initial evaluation, he was noted to have a large pleural effusion in addition to further imaging that showed metastatic disease to the liver, lungs, hilar adenopathy in addition to rectal mass. Thoracentesis performed yesterday showed the presence of adenocarcinoma and in light of the rectal mass being able to be palpated on rectal examination and in light of all the further imaging, this is likely secondary to metastatic rectal cancer. At this time, it seems fairly clear what the origin of his metastatic disease is with endoscopic evaluation not likely to add anything to the current plan of care. RECOMMENDATIONS: 1. We would defer to the oncology service for further treatment options. It seems as though the family is weighing their options at this time in terms of whether or not to proceed with palliative chemotherapy. 2. Pain control per primary team. 3. If the patient decides not to proceed with palliative treatment, placement on hospice is not reasonable at this time. Given the appearance of adenocarcinoma on cytology from the thoracentesis as well as metastatic disease and a palpable rectal mass on physical examination, endoscopic evaluation is likely not to add anything to the current management. Therefore, we will sign off at this time. Please call with any additional questions. Job ID: [id number]
[2020-06-24] MEDS: Furosemide 40 MG/4 ML VIAL SLOW IVP SCH (05:36)
[2020-06-24 07:16] LABS: ALT (SGPT) 31 U/L (8-55); AST (SGOT) 43 U/L (5-34); Albumin 2.4 g/dL (3.4-4.8); Alkaline Phosphatase 110 U/L (40-110); Anion Gap 14 mmol/L (10-20); BUN (Urea Nitrogen) 9 mg/dL (8.4-25.7); Bilirubin, Total 0.9 mg/dL (0.2-1.2); Calc. Creatinine Clearance 120 mL/min (70-130); Calcium 7.7 mg/dL (7.8-10.44); Carbon Dioxide 28 mmol/L (23-31); Chloride 94 mmol/L (98-107); Globulin 2.1 g/dL (2.4-3.5); Glucose 78 mg/dL (83-110); Potassium 3.1 mmol/L (3.5-5.1); Protein, Total 4.5 g/dL (5.8-8.1); Sodium 133 mmol/L (136-145)
[2020-06-24 08:45] LABS: Hemoglobin 8.2 g/dL (14.0-18.0); Mean Corpuscular HGB CONC 29.7 g/dL (32.0-36.0); Mean Corpuscular Volume 70.6 fL (78.0-98.0); Mean Platelet Volume 8.8 fL (7.4-10.4); Platelet Count 310 thou/uL (130-400); RBC Distribution Width 18.7 % (11.5-14.5); Red Blood Cell (RBC) Count 3.92 mill/uL (4.70-6.10); White Blood Cell (WBC) Count 10.8 thou/uL (4.8-10.8)
[2020-06-24] MEDS: Famotidine 20 MG TAB PO SCH ×2 (09:00→20:54)
[2020-06-24] MEDS: Aspirin Chewable 81 MG TAB PO SCH (09:00)
[2020-06-24] MEDS: Amlodipine 5 MG TAB PO SCH (09:01)
[2020-06-24] MEDS: Cefdinir 300 MG CAP PO SCH ×2 (09:04→20:54)
[2020-06-24 09:20] LABS: Band 2 % (5-11); Hypochromia MODERATE=16-30 cells (100X) (0-5/hpf); Lymphocytes 30 % (21-51); MDiff Complete? YES; Microcytosis MODERATE=15-30 cells (100X) (0-5/hpf); Monocytes 3 % (0-10); Neutrophil 64 % (42-75); Ovalocytes MODERATE= 6-15 cells (100X) (0-1/hpf); Platelet Morphology Comment Appears Adequate; Polychromasia SLIGHT = 2-3 cells (100X) (0-2/hpf); Reactive Lymphocytes 1 % (0-10); Schistocytes SLIGHT = 2-5 cells (100X) (0-1/hpf); Target Cells SLIGHT = 2-5 cells (100X) (0-1/hpf)
--- NOTE | 2020-06-24 12:04 | PRG ---
DATE OF SERVICE: 06/24/2020 SUBJECTIVE: Pleural effusion showed it was adenocarcinoma, probably metastatic. X-ray shows multiple lung masses. OBJECTIVE: VITAL SIGNS: Temperature 98, pulse 86, blood pressure 108/54, saturations 92% on room air. CHEST: No wheezing. No crackles. CARDIAC: Normal S1 . LABORATORY DATA: White count 10,000. Sodium 133. IMPRESSION: Metastatic carcinoma. PLAN: I am not so sure it is worth doing additional biopsy on this patient who is a DNR. Await input from Cardiology. Continue supportive care. We will try and discontinue his Lasix. Since his sodium is decreasing, I am not so sure he has much of a cardiac component. Job ID: [id number]
--- NOTE | 2020-06-24 19:28 | PDOC.HOSPP ---
- Subjective Encounter Date: 06/24/20 Encounter Time: 13:30 Subjective: Patient seen for follow-up regarding respiratory failure. Reports shortness of breath with exertion. Denies chest pain. - Objective Vital Signs & Weight: Vital Signs (12 hours) Temp Pulse Resp BP BP BP BP 06/24/20 15:38 71/40 L 104/57 L 113/61 06/24/20 15:00 98 F 81 17 06/24/20 11:00 97.6 F 73 19 06/24/20 09:01 86 108/54 L 06/24/20 08:00 BP BP Pulse Ox 06/24/20 15:38 06/24/20 15:00 98/56 L 96 06/24/20 11:00 104/57 L 94 L 06/24/20 09:01 06/24/20 08:00 96 Weight Admit Weight 170 lb Weight 170 lb I&O: 06/23/20 06/24/20 06/25/20 06:59 06:59 06:59 Intake Total 1320 Output Total 1 Balance 1319 Result Diagrams: 06/24/20 06:00 06/24/20 06:00 Additional Labs: Accuchecks 06/24/20 06/24/20 06/24/20 16:35 11:37 04:50 POC Glucose 134 H 79 84 06/23/20 20:20 POC Glucose 111 H Labs and MAR reviewed by mt Hospitalist ROS - Review of Systems Respiratory: reports: SOB with excertion Cardiovascular: denies: chest pain, palpitations, orthopnea, paroxysmal noc. dyspnea, edema, light headedness Genitourinary: denies: dysuria, frequency, incontinence, hematuria, retention - Medication Medications: Active Medications Generic Name Dose Route Start Last Admin Trade Name Freq PRN Reason Stop Dose Admin Acetaminophen 650 mg 06/21/20 18:09 06/22/20 21:12 Acetaminophen 325 Mg Tab PO 650 mg Q4H PRN Administration Headache/Fever/Mild Pain (1-3) Amlodipine Besylate 2.5 mg 06/23/20 09:00 06/24/20 09:01 Amlodipine 5 Mg Tab PO Not Given DAILY CARISSA Aspirin 81 mg 06/23/20 09:00 06/24/20 09:00 Aspirin Chewable 81 Mg Tab PO 81 mg DAILY CARISSA Administration Cefdinir 300 mg 06/23/20 21:00 06/24/20 09:04 Cefdinir 300 Mg Cap PO 300 mg BID CARISSA Administration Dextrose/Water 25 gm 06/22/20 09:00 06/22/20 08:20 Dextrose 50% Abboject 50 Ml Syringe IVP 25 gm PRN PRN Administration HYPOGLYCEMIA PROTOCOL Famotidine 20 mg 06/21/20 21:00 06/24/20 09:00 Famotidine 20 Mg Tab PO 20 mg BID CARISSA Administration Metoprolol Succinate 25 mg 06/23/20 09:00 06/24/20 09:01 Metoprolol Succinate Xl 25 Mg Tab PO Not Given DAILY REPLACED BY [facility] Hospitalist Exam Vitals: Vital Signs (12 hours) Temp Pulse Resp BP BP BP BP 06/24/20 15:38 71/40 L 104/57 L 113/61 06/24/20 15:00 98 F 81 17 06/24/20 11:00 97.6 F 73 19 06/24/20 09:01 86 108/54 L 06/24/20 08:00 BP BP Pulse Ox 06/24/20 15:38 06/24/20 15:00 98/56 L 96 06/24/20 11:00 104/57 L 94 L 06/24/20 09:01 06/24/20 08:00 96 Weight Admit Weight 170 lb Weight 170 lb General Appearance: awake alert Eye: anicteric sclera ENT: moist mucosa Neck: supple Heart: RRR Respiratory: CTAB Skin: no rashes Psychiatric: normal affect Hosp A/P - Plan (1) Acute respiratory failure with hypoxia Code(s): J96.01 - ACUTE RESPIRATORY FAILURE WITH HYPOXIA Status: Acute (2) Generalized weakness Code(s): R53.1 - WEAKNESS Status: Acute (3) Lung metastasis Code(s): C78.00 - SECONDARY MALIGNANT NEOPLASM OF UNSPECIFIED LUNG Status: Acute (4) Multiple falls Code(s): R29.6 - REPEATED FALLS Status: Acute (5) Recent head injury Code(s): S09.90XA - UNSPECIFIED INJURY OF HEAD, INITIAL ENCOUNTER Status: Acute (6) Abnormal weight loss Code(s): R63.4 - ABNORMAL WEIGHT LOSS Status: Chronic (7) Abdominal bloating Code(s): R14.0 - ABDOMINAL DISTENSION (GASEOUS) Status: Chronic (8) Hypertension, essential Code(s): I10 - ESSENTIAL (PRIMARY) HYPERTENSION Status: Chronic (9) Hyperlipidemia Code(s): E78.5 - HYPERLIPIDEMIA, UNSPECIFIED Status: Chronic (10) Anemia Code(s): D64.9 - ANEMIA, UNSPECIFIED Status: Acute (11) protein calorie malnutrition, severe Status: Chronic, present on admission (12) CHF exacerbation Code(s): I50.9 - HEART FAILURE, UNSPECIFIED Status: Ruled out Plan: Path report showed adenocarcinoma. Oncology following. Palliative care service following as well. Hypertension is controlled and stable. DVT prophylaxis with SCDs.
[2020-06-24] MEDS: Potassium Chloride 20 MEQ TAB PO SCH ×2 (19:48→20:54)
[2020-06-24] MEDS: Acetaminophen 325 MG TAB PO PRN (20:52)
[2020-06-25 06:00] LABS: #Basophils 0.2 thou/uL (0.0-0.2); #Eosinphils 0.2 thou/uL (0.0-0.7); #Lymphocytes 3.8 thou/uL (1.20-3.40); #Monocytes 0.8 thou/uL (0.11-0.59); #Neutrophils 6.5 thou/uL (1.40-6.50); %Basophils 1.4 % (0.0-1.0); %Eosinophils 1.7 % (0.0-10.0); %Lymphocytes 33.4 % (21.0-51.0); %Monocytes 6.9 % (0.0-10.0); %Neutrophils 56.7 % (42.0-75.0); Hemoglobin 7.6 g/dL (14.0-18.0); Mean Corpuscular HGB CONC 29.8 g/dL (32.0-36.0); Mean Corpuscular Volume 70.5 fL (78.0-98.0); Mean Platelet Volume 8.7 fL (7.4-10.4); Platelet Count 302 thou/uL (130-400); RBC Distribution Width 18.8 % (11.5-14.5); Red Blood Cell (RBC) Count 3.62 mill/uL (4.70-6.10); White Blood Cell (WBC) Count 11.4 thou/uL (4.8-10.8)
[2020-06-25 06:26] LABS: ALT (SGPT) 28 U/L (8-55); AST (SGOT) 40 U/L (5-34); Albumin 2.3 g/dL (3.4-4.8); Alkaline Phosphatase 115 U/L (40-110); Anion Gap 9 mmol/L (10-20); BUN (Urea Nitrogen) 10 mg/dL (8.4-25.7); Bilirubin, Total 0.8 mg/dL (0.2-1.2); Calc. Creatinine Clearance 105 mL/min (70-130); Calcium 7.7 mg/dL (7.8-10.44); Carbon Dioxide 32 mmol/L (23-31); Chloride 93 mmol/L (98-107); Globulin 2.3 g/dL (2.4-3.5); Glucose 109 mg/dL (83-110); Potassium 3.6 mmol/L (3.5-5.1); Protein, Total 4.6 g/dL (5.8-8.1); Sodium 130 mmol/L (136-145)
[2020-06-25] MEDS: Cefdinir 300 MG CAP PO SCH ×2 (07:41→20:32)
[2020-06-25] MEDS: Famotidine 20 MG TAB PO SCH ×2 (07:41→20:32)
[2020-06-25] MEDS: Amlodipine 5 MG TAB PO SCH (07:42)
[2020-06-25] MEDS: Aspirin Chewable 81 MG TAB PO SCH (07:42)
--- NOTE | 2020-06-25 09:37 | PRG ---
DATE OF SERVICE: 06/25/2020 SUBJECTIVE: Tevin Rodas is an 84-year-old gentleman, no respiratory distress. OBJECTIVE: VITAL SIGNS: Temperature 98, pulse 68, blood pressure 115/54, CHEST: No wheezing. No crackles. CARDIAC: LABORATORY DATA: White count 11,000, H and H of 7 and 25, platelet count is normal. Sodium 130. Lytes are normal. IMPRESSION: Metastatic carcinoma, large pleural effusion, respiratory failure. PLAN: He is a DNR. Comfort care. They are trying to find a placement for him. Job ID: [id number]
[2020-06-25] MEDS ORDERED: Gabapentin 100 MG CAP PO SCH (14:30)
--- NOTE | 2020-06-25 18:03 | PDOC.HOSPP ---
- Subjective Encounter Date: 06/25/20 Encounter Time: 08:20 Subjective: Patient seen for follow-up regarding acute hypoxic respiratory failure. Reports leg pain. - Objective Vital Signs & Weight: Vital Signs (12 hours) Temp Pulse Pulse Pulse Pulse Resp BP 06/25/20 15:00 97.5 F L 76 16 06/25/20 11:00 97.6 F 82 16 06/25/20 08:42 87 75 96 06/25/20 07:42 68 115/54 L 06/25/20 07:00 98.2 F 68 16 BP BP BP BP Pulse Ox 06/25/20 15:00 99/60 95 06/25/20 11:00 122/69 90 L 06/25/20 08:42 124/75 69/47 L 103/66 06/25/20 07:42 06/25/20 07:00 115/54 L 94 L Weight Admit Weight 170 lb Weight 170 lb I&O: 06/24/20 06/25/20 06/26/20 06:59 06:59 06:59 Intake Total 1320 800 Output Total 1 Balance 1319 800 Result Diagrams: 06/25/20 05:02 06/25/20 05:02 Additional Labs: Accuchecks 06/25/20 06/25/20 06/24/20 11:27 04:56 20:09 POC Glucose 90 105 H 86 I reviewed patient's labs and [facility] Hospitalist ROS - Review of Systems Respiratory: reports: SOB with excertion. denies: cough, dry, shortness of breath, hemoptysis, pleuritic pain, sputum, wheezing Cardiovascular: denies: chest pain, palpitations, orthopnea, paroxysmal noc. dyspnea, edema, light headedness Musculoskeletal: reports: leg pain - Medication Medications: Active Medications Generic Name Dose Route Start Last Admin Trade Name Freq PRN Reason Stop Dose Admin Acetaminophen 650 mg 06/21/20 18:09 06/24/20 20:52 Acetaminophen 325 Mg Tab PO 650 mg Q4H PRN Administration Headache/Fever/Mild Pain (1-3) Amlodipine Besylate 2.5 mg 06/23/20 09:00 06/25/20 07:42 Amlodipine 5 Mg Tab PO Not Given DAILY CARISSA Aspirin 81 mg 06/23/20 09:00 06/25/20 07:42 Aspirin Chewable 81 Mg Tab PO 81 mg DAILY CARISSA Administration Cefdinir 300 mg 06/23/20 21:00 06/25/20 07:41 Cefdinir 300 Mg Cap PO 300 mg BID CARISSA Administration Dextrose/Water 25 gm 06/22/20 09:00 06/22/20 08:20 Dextrose 50% Abboject 50 Ml Syringe IVP 25 gm PRN PRN Administration HYPOGLYCEMIA PROTOCOL Famotidine 20 mg 06/21/20 21:00 06/25/20 07:41 Famotidine 20 Mg Tab PO 20 mg BID CARISSA Administration Metoprolol Succinate 25 mg 06/23/20 09:00 06/25/20 07:42 Metoprolol Succinate Xl 25 Mg Tab PO Not Given DAILY [facility] Hospitalist Exam Vitals: Vital Signs (12 hours) Temp Pulse Pulse Pulse Pulse Resp BP 06/25/20 15:00 97.5 F L 76 16 06/25/20 11:00 97.6 F 82 16 06/25/20 08:42 87 75 96 06/25/20 07:42 68 115/54 L 06/25/20 07:00 98.2 F 68 16 BP BP BP BP Pulse Ox 06/25/20 15:00 99/60 95 06/25/20 11:00 122/69 90 L 06/25/20 08:42 124/75 69/47 L 103/66 06/25/20 07:42 06/25/20 07:00 115/54 L 94 L Weight Admit Weight 170 lb Weight 170 lb General Appearance: awake alert ENT: moist mucosa Neck: supple Heart: murmur present Respiratory: CTAB Gastrointestinal: soft Psychiatric: normal affect, normal behavior Hosp A/P - Plan Patient is a pleasant 83-year-old gentleman who was admitted to the hospital on June 21, 2020 for acute respiratory failure with hypoxia, secondary to pleural effusions. He also had lung nodules and liver mets, possibly rectal tumor. He was seen by pulmonology, oncology, cardiology and GI services. He underwent thoracentesis with improvement in symptoms pleural fluid cytology showed adenocarcinoma. He was seen by palliative care service. Arrangements are being made for hospice care at a nursing facility. (1) Acute respiratory failure with hypoxia Code(s): J96.01 - ACUTE RESPIRATORY FAILURE WITH HYPOXIA Status: Acute (2) Generalized weakness Code(s): R53.1 - WEAKNESS Status: Acute (3) Lung metastasis Code(s): C78.00 - SECONDARY MALIGNANT NEOPLASM OF UNSPECIFIED LUNG Status: Acute (4) Multiple falls Code(s): R29.6 - REPEATED FALLS Status: Acute (5) Recent head injury Code(s): S09.90XA - UNSPECIFIED INJURY OF HEAD, INITIAL ENCOUNTER Status: Acute (6) Abnormal weight loss Code(s): R63.4 - ABNORMAL WEIGHT LOSS Status: Chronic (7) Abdominal bloating Code(s): R14.0 - ABDOMINAL DISTENSION (GASEOUS) Status: Chronic (8) Hypertension, essential Code(s): I10 - ESSENTIAL (PRIMARY) HYPERTENSION Status: Chronic (9) Hyperlipidemia Code(s): E78.5 - HYPERLIPIDEMIA, UNSPECIFIED Status: Chronic (10) Anemia Code(s): D64.9 - ANEMIA, UNSPECIFIED Status: Acute (11) protein calorie malnutrition, severe Status: Chronic, present on admission (12) CHF exacerbation Code(s): I50.9 - HEART FAILURE, UNSPECIFIED Status: Ruled out Plan: Path report showed adenocarcinoma. Trial gabapentin for leg pain. Discharged to nursing facility for hospice care once arrangements are made. Hypertension is controlled and stable. DVT prophylaxis with SCDs.
[2020-06-26 07:09] LABS: ALT (SGPT) 23 U/L (8-55); AST (SGOT) 31 U/L (5-34); Albumin 2.3 g/dL (3.4-4.8); Alkaline Phosphatase 110 U/L (40-110); Anion Gap 12 mmol/L (10-20); BUN (Urea Nitrogen) 8 mg/dL (8.4-25.7); Bilirubin, Total 1.1 mg/dL (0.2-1.2); Calc. Creatinine Clearance 125 mL/min (70-130); Calcium 7.8 mg/dL (7.8-10.44); Carbon Dioxide 27 mmol/L (23-31); Chloride 93 mmol/L (98-107); Globulin 2.2 g/dL (2.4-3.5); Glucose 75 mg/dL (83-110); Potassium 3.7 mmol/L (3.5-5.1); Protein, Total 4.5 g/dL (5.8-8.1); Sodium 128 mmol/L (136-145)
[2020-06-26 07:19] LABS: #Basophils 0.1 thou/uL (0.0-0.2); #Eosinphils 0.2 thou/uL (0.0-0.7); #Lymphocytes 4.4 thou/uL (1.20-3.40); #Monocytes 0.6 thou/uL (0.11-0.59); #Neutrophils 5.3 thou/uL (1.40-6.50); %Basophils 0.8 % (0.0-1.0); %Eosinophils 2.3 % (0.0-10.0); %Lymphocytes 41.2 % (21.0-51.0); %Neutrophils 49.7 % (42.0-75.0); Hemoglobin 7.7 g/dL (14.0-18.0); Mean Corpuscular HGB CONC 29.8 g/dL (32.0-36.0); Mean Corpuscular Hemoglobin 20.8 pg (27.0-31.0); Mean Corpuscular Volume 69.7 fL (78.0-98.0); Mean Platelet Volume 9.1 fL (7.4-10.4); Platelet Count 311 thou/uL (130-400); RBC Distribution Width 18.9 % (11.5-14.5); Red Blood Cell (RBC) Count 3.69 mill/uL (4.70-6.10); White Blood Cell (WBC) Count 10.6 thou/uL (4.8-10.8)
[2020-06-26 07:20] LABS: Hypochromia MODERATE=16-30 cells (100X) (0-5/hpf); MDiff Complete? YES; Microcytosis MODERATE=15-30 cells (100X) (0-5/hpf); Poikilocytosis SLIGHT = 6-15 cells (100X) (0-5/hpf)
[2020-06-26] MEDS: Amlodipine 5 MG TAB PO SCH (08:00)
[2020-06-26] MEDS: Aspirin Chewable 81 MG TAB PO SCH (08:02)
[2020-06-26] MEDS: Cefdinir 300 MG CAP PO SCH ×2 (08:02→21:00)
[2020-06-26] MEDS: Gabapentin 100 MG CAP PO SCH (08:06)
[2020-06-26] MEDS: Famotidine 20 MG TAB PO SCH ×2 (08:07→21:00)
--- NOTE | 2020-06-26 16:58 | PDOC.HOSPP ---
- Subjective Encounter Date: 06/26/20 Encounter Time: 17:03 Subjective: F/u: lung cancer The patient states his SOB has significantly improved, but is still SOB to some extent. He wants to cough but nothing is coming up. He is interested in going to a hospice facility in [place] He reports poor appetite and difficulty swallowing. Patient states he is unable to taste anything. - Objective Vital Signs & Weight: Vital Signs (12 hours) Temp Pulse Resp BP BP BP BP 06/26/20 16:28 97.5 F L 59 L 20 93/51 L 06/26/20 11:38 97.3 F L 73 18 120/61 06/26/20 08:00 90/50 L 75/42 L 106/58 L 06/26/20 07:42 97.3 F L 78 18 99/55 L Pulse Ox 06/26/20 16:28 100 06/26/20 11:38 100 06/26/20 08:00 06/26/20 07:42 100 Weight Admit Weight 170 lb Weight 170 lb I&O: 06/25/20 06/26/20 06/27/20 06:59 06:59 06:59 Intake Total 800 500 Balance 800 500 Result Diagrams: 06/26/20 05:46 06/26/20 05:46 Additional Labs: Accuchecks 06/26/20 06/26/20 06/26/20 16:28 11:38 05:06 POC Glucose 90 92 83 06/25/20 06/25/20 20:11 18:16 POC Glucose 94 90 Hospitalist ROS - Review of Systems Constitutional: denies: fever, chills - Medication Medications: Active Medications Generic Name Dose Route Start Last Admin Trade Name Freq PRN Reason Stop Dose Admin Acetaminophen 650 mg 06/21/20 18:09 06/24/20 20:52 Acetaminophen 325 Mg Tab PO 650 mg Q4H PRN Administration Headache/Fever/Mild Pain (1-3) Amlodipine Besylate 2.5 mg 06/23/20 09:00 06/26/20 08:00 Amlodipine 5 Mg Tab PO Not Given DAILY CARISSA Aspirin 81 mg 06/23/20 09:00 06/26/20 08:02 Aspirin Chewable 81 Mg Tab PO 81 mg DAILY CARISSA Administration Cefdinir 300 mg 06/23/20 21:00 06/26/20 08:02 Cefdinir 300 Mg Cap PO 300 mg BID CARISSA Administration Dextrose/Water 25 gm 06/22/20 09:00 06/22/20 08:20 Dextrose 50% Abboject 50 Ml Syringe IVP 25 gm PRN PRN Administration HYPOGLYCEMIA PROTOCOL Famotidine 20 mg 06/21/20 21:00 06/26/20 08:07 Famotidine 20 Mg Tab PO 20 mg BID CARISSA Administration Gabapentin 100 mg 06/26/20 09:00 06/26/20 08:06 Gabapentin 100 Mg Cap PO 100 mg DAILY CARISSA Administration Metoprolol Succinate 25 mg 06/23/20 09:00 06/26/20 08:01 Metoprolol Succinate Xl 25 Mg Tab PO Not Given DAILY CARISSA Sodium Chloride 10 ml 06/21/20 18:09 06/26/20 08:07 Flush - Normal Saline 10 Ml Syringe IVF 10 ml Q12H PRN Administration Saline Flush Hospitalist Exam Vitals: Vital Signs (12 hours) Temp Pulse Resp BP BP BP BP 06/26/20 16:28 97.5 F L 59 L 20 93/51 L 06/26/20 11:38 97.3 F L 73 18 120/61 06/26/20 08:00 90/50 L 75/42 L 106/58 L 06/26/20 07:42 97.3 F L 78 18 99/55 L Pulse Ox 06/26/20 16:28 100 06/26/20 11:38 100 06/26/20 08:00 06/26/20 07:42 100 Weight Admit Weight 170 lb Weight 170 lb General Appearance: NAD, awake alert Eye: PERRL, anicteric sclera ENT: normocephalic atraumatic, no oropharyngeal lesions Neck: supple, no JVD Heart: RRR, no murmur, no gallops, no rubs, murmur present Respiratory - other findings: slightly diminished lung sounds right base Gastrointestinal: soft, non-tender, non-distended, normal bowel sounds Extremities: no cyanosis, no clubbing, no edema Skin: normal turgor, no lesions, no rashes Neurological: cranial nerve grossly intact, normal sensation to touch Hosp A/P - Plan Chest Xray 06/22: decreased right layering pleural effusion CT chest 06/21: large bilateral effusions and numerous bilateral pulmonary nodules with diffuse pulmonary mets. Groundglass opacification throughout the lungs which could represent areas of consolidated pneumonia, atelectasis or metastatic lesions CT brain 06/21: no abnormality CT abdomen: low density liver lesion This is an 84 year old male who presented with SOB. He was found to have large bilateral effusions. He had a thoracentesis which showed adenocarcinoma. Family is looking into hospice Acute hypoxic respiratory failure secondary to lung adenocarcinoma vs pneumonia - family is interested in hospice. X-ray on 06/22 showed improving right pleural effusion. He still complains of chest congestion so repeat chest x-ray again today. -CT chest 06/21 showed scattered consolidation and cefdinir empirically. May need to consider lasix vs discussion of pleurex due to malignant effusion. Patient will consider lasix for now if effusion has worsened Hyponatremia - sodium worsening to 128. Could be fluid retention from effusion vs dehydration. Will repeat chest x ray #Liver lesions #Left renal cyst - noted on CT abdomen. Outpatient follow up Dysphagia - consult speech therapy
--- NOTE | 2020-06-26 19:13 | RAD ---
CHEST ONE VIEW PORTABLE: 06/26/20 HISTORY: Follow-up pleural effusion, status post thoracentesis. COMPARISON: 06/22/20. FINDINGS: Borderline heart size. Slightly progressively confluent interstitial alveolar and ground glass opacit y changes noted bilaterally with more confluence in the right mid and lower lung zone than on the prudencio or study. No pneumothorax. Bone demineralization. IMPRESSION: Some progressive confluence, particularly of the right mid and lower lung zone parenchymal changes. N o pneumothorax. POS: RRE
[2020-06-26] MEDS ORDERED: Furosemide 20 MG/2 ML VIAL SLOW IVP SCH (20:00)
[2020-06-26] MEDS: guaiFENesin ER 600 MG TAB PO SCH (21:00)
[2020-06-27] MEDS ORDERED: Melatonin 3 MG TAB PO SCH (02:15)
[2020-06-27] MEDS: Cefdinir 300 MG CAP PO SCH ×2 (08:32→20:30)
[2020-06-27] MEDS: Famotidine 20 MG TAB PO SCH ×2 (08:32→20:30)
[2020-06-27] MEDS: Gabapentin 100 MG CAP PO SCH (08:32)
[2020-06-27] MEDS: Amlodipine 5 MG TAB PO SCH (08:32)
[2020-06-27] MEDS: guaiFENesin ER 600 MG TAB PO SCH ×2 (08:33→20:30)
[2020-06-27] MEDS: Aspirin Chewable 81 MG TAB PO SCH (08:33)
[2020-06-27 10:12] LABS: Anion Gap 12 mmol/L (10-20); BUN (Urea Nitrogen) 10 mg/dL (8.4-25.7); Calc. Creatinine Clearance 117 mL/min (70-130); Calcium 7.9 mg/dL (7.8-10.44); Carbon Dioxide 26 mmol/L (23-31); Chloride 91 mmol/L (98-107); Glucose 92 mg/dL (83-110); Sodium 125 mmol/L (136-145)
[2020-06-27] MEDS: Acetaminophen 325 MG TAB PO PRN ×2 (12:52→16:51)
--- NOTE | 2020-06-27 15:34 | PDOC.HOSPP ---
- Subjective Encounter Date: 06/27/20 Encounter Time: 10:30 Subjective: F/u: pleural effusion The patient feels less short of breath today and denies having congestion. He is still wearing the oxygen for comfort. He states his feet are hurting which improved when he did some feet exercises. Advised him to try to ambulate some if he can - Objective Vital Signs & Weight: Vital Signs (12 hours) Temp Pulse Resp BP Pulse Ox 06/27/20 07:47 97.9 F 78 20 101/82 97 Weight Admit Weight 170 lb Weight 170 lb I&O: 06/26/20 06/27/20 06/28/20 06:59 06:59 06:59 Intake Total 500 1736 Balance 500 1736 Result Diagrams: 06/26/20 05:46 06/27/20 09:42 Additional Labs: Accuchecks 06/27/20 06/27/20 06/26/20 11:55 05:34 20:15 POC Glucose 99 119 H 96 06/26/20 16:28 POC Glucose 90 Hospitalist ROS - Review of Systems Constitutional: denies: fever, chills - Medication Medications: Active Medications Generic Name Dose Route Start Last Admin Trade Name Freq PRN Reason Stop Dose Admin Acetaminophen 650 mg 06/21/20 18:09 06/27/20 12:52 Acetaminophen 325 Mg Tab PO 650 mg Q4H PRN Administration Headache/Fever/Mild Pain (1-3) Amlodipine Besylate 2.5 mg 06/23/20 09:00 06/27/20 08:32 Amlodipine 5 Mg Tab PO Not Given DAILY CARISSA Aspirin 81 mg 06/23/20 09:00 06/27/20 08:33 Aspirin Chewable 81 Mg Tab PO 81 mg DAILY CARISSA Administration Cefdinir 300 mg 06/23/20 21:00 06/27/20 08:32 Cefdinir 300 Mg Cap PO 300 mg BID CARISSA Administration Dextrose/Water 25 gm 06/22/20 09:00 06/22/20 08:20 Dextrose 50% Abboject 50 Ml Syringe IVP 25 gm PRN PRN Administration HYPOGLYCEMIA PROTOCOL Famotidine 20 mg 06/21/20 21:00 06/27/20 08:32 Famotidine 20 Mg Tab PO 20 mg BID CARISSA Administration Gabapentin 100 mg 06/26/20 09:00 06/27/20 08:32 Gabapentin 100 Mg Cap PO 100 mg DAILY CARISSA Administration Guaifenesin 600 mg 06/26/20 21:00 06/27/20 08:33 Guaifenesin Er 600 Mg Tab PO 600 mg Q12HR CARISSA Administration Metoprolol Succinate 25 mg 06/23/20 09:00 06/27/20 08:32 Metoprolol Succinate Xl 25 Mg Tab PO Not Given DAILY CARISSA Sodium Chloride 10 ml 06/21/20 18:09 06/27/20 08:33 Flush - Normal Saline 10 Ml Syringe IVF 10 ml Q12H PRN Administration Saline Flush Hospitalist Exam Vitals: Vital Signs (12 hours) Temp Pulse Resp BP Pulse Ox 06/27/20 07:47 97.9 F 78 20 101/82 97 Weight Admit Weight 170 lb Weight 170 lb General Appearance: NAD, awake alert Eye: PERRL, anicteric sclera ENT: normocephalic atraumatic, no oropharyngeal lesions Neck: supple, symmetric, no JVD Heart: RRR, no murmur, no gallops, no rubs Respiratory - other findings: decreased breath sounds right base Gastrointestinal: soft, non-tender, non-distended, normal bowel sounds Extremities: no cyanosis, no clubbing, no edema Skin: normal turgor, no lesions, no rashes Skin - other findings: venous stasis changes in the legs Neurological: cranial nerve grossly intact, normal sensation to touch, no focal deficits, no new deficit Musculoskeletal - other findings: intact range of motion on the feet Psychiatric: normal affect, normal behavior, A&O x 3 Hosp A/P - Plan Chest Xray 06/22: decreased right layering pleural effusion CT chest 06/21: large bilateral effusions and numerous bilateral pulmonary nodules with diffuse pulmonary mets. Groundglass opacification throughout the lungs which could represent areas of consolidated pneumonia, atelectasis or metastatic lesions CT brain 06/21: no abnormality CT abdomen: low density liver lesion Chest X ray 06/26: progressive interstitial alveolar and ground glass changes bilaterally worst in right mid and lower lung zone This is an 84 year old male who presented with SOB. He was found to have large bilateral effusions. He had a thoracentesis which showed adenocarcinoma. Family is looking into hospice Acute hypoxic respiratory failure secondary to lung adenocarcinoma vs pneumonia - family is interested in hospice. X-ray on 06/22 showed improving right pleural effusion. CT chest 06/21 showed scattered consolidation and he is on cefdinir empirically. - 06/26: Repeat chest x ray showed progressive interstitial opacities worst on right. Ordered 20 mg IV lasix. - 06/27: discontinue further lasix due to worsening hyponatremia. Will monitor, symptoms are improved Hyponatremia - sodium worsened to 125. Will hold off on any further lasix. Will avoid IV fluids since SOB improved with lasix . Check serum and urine osmolarity #Liver lesions #Left renal cyst - noted on CT abdomen. Outpatient follow up Dysphagia - consult speech therapy Dispo: continue PT. Pending hospice transfer to outside facility
[2020-06-27] MEDS: Ferrous Sulfate 325 MG TAB PO SCH (17:02)
[2020-06-28] MEDS ORDERED: Aspirin Chewable 81 MG TAB ONE (09:18)
[2020-06-28] MEDS ORDERED: Ferrous Sulfate 325 MG TAB ONE (09:18)
[2020-06-28] MEDS ORDERED: Amlodipine 5 MG TAB ONE (09:19)
[2020-06-28] MEDS ORDERED: Cefdinir 300 MG CAP ONE (09:19)
[2020-06-28] MEDS ORDERED: Gabapentin 100 MG CAP ONE (09:19)
[2020-06-28] MEDS ORDERED: guaiFENesin/DM ER ONE (09:19)
[2020-06-28] MEDS ORDERED: Famotidine 20 MG TAB ONE (09:20)
[2020-06-28] MEDS: Ferrous Sulfate 325 MG TAB PO SCH ×2 (11:05→18:09)
[2020-06-28] MEDS: Cefdinir 300 MG CAP PO SCH ×2 (11:05→20:49)
[2020-06-28] MEDS: Aspirin Chewable 81 MG TAB PO SCH (11:05)
[2020-06-28] MEDS: Famotidine 20 MG TAB PO SCH ×2 (11:05→20:49)
[2020-06-28] MEDS: guaiFENesin ER 600 MG TAB PO SCH (11:05)
[2020-06-28] MEDS: Gabapentin 100 MG CAP PO SCH (11:05)
--- NOTE | 2020-06-28 12:14 | PRG ---
DATE OF SERVICE: 06/28/2020 SUBJECTIVE: Tevin Rodas this morning is awake, alert, responsive, no distress. Denies any difficulty breathing, coughing, or wheezing. OBJECTIVE: VITAL SIGNS: His sats are 100% on 1 L, pulse 18, blood pressure . CHEST: No wheezing or crackles. CARDIAC: Normal S1, S2. No gallops. ABDOMEN: No masses. ASSESSMENT AND PLAN: Metastatic carcinoma, bilateral lung nodules, pleural effusion. Respiratory failure, stable. Awaiting placement. Comfort care. Job ID: [id number]
[2020-06-28] MEDS: Amlodipine 5 MG TAB PO SCH (12:45)
--- NOTE | 2020-06-28 14:16 | PDOC.HOSPP ---
- Subjective Encounter Date: 06/28/20 Encounter Time: 10:00 Subjective: F/u: lung cancer The patient feels much better. He has no significant cough. He is still on oxygen. Per nurse, he had liquid dark stool today. He denies abd pain, nausea/vomiting - Objective Vital Signs & Weight: Vital Signs (12 hours) Temp Pulse Resp BP Pulse Ox 06/28/20 08:00 97.4 F L 82 22 H 123/59 L 97 Weight Admit Weight 170 lb Weight 170 lb I&O: 06/27/20 06/28/20 06/29/20 06:59 06:59 06:59 Intake Total 1736 1084 Balance 1736 1084 Result Diagrams: 06/26/20 05:46 06/27/20 09:42 Additional Labs: Accuchecks 06/28/20 06/27/20 06/27/20 04:57 20:42 16:19 POC Glucose 92 99 111 H Hospitalist ROS - Review of Systems Constitutional: denies: fever, chills - Medication Medications: Active Medications Generic Name Dose Route Start Last Admin Trade Name Freq PRN Reason Stop Dose Admin Acetaminophen 650 mg 06/21/20 18:09 06/27/20 16:51 Acetaminophen 325 Mg Tab PO 650 mg Q4H PRN Administration Headache/Fever/Mild Pain (1-3) Amlodipine Besylate 2.5 mg 06/23/20 09:00 06/27/20 08:32 Amlodipine 5 Mg Tab PO Not Given DAILY CARISSA Aspirin 81 mg 06/23/20 09:00 06/27/20 08:33 Aspirin Chewable 81 Mg Tab PO 81 mg DAILY CARISSA Administration Cefdinir 300 mg 06/23/20 21:00 06/27/20 20:30 Cefdinir 300 Mg Cap PO 300 mg BID CARISSA Administration Dextrose/Water 25 gm 06/22/20 09:00 06/22/20 08:20 Dextrose 50% Abboject 50 Ml Syringe IVP 25 gm PRN PRN Administration HYPOGLYCEMIA PROTOCOL Famotidine 20 mg 06/21/20 21:00 06/27/20 20:30 Famotidine 20 Mg Tab PO 20 mg BID CARISSA Administration Ferrous Sulfate 325 mg 06/27/20 17:00 06/27/20 17:02 Ferrous Sulfate 325 Mg Tab PO 325 mg BID-WM CARISSA Administration Gabapentin 100 mg 06/26/20 09:00 06/27/20 08:32 Gabapentin 100 Mg Cap PO 100 mg DAILY CARISSA Administration Metoprolol Succinate 25 mg 06/23/20 09:00 06/27/20 08:32 Metoprolol Succinate Xl 25 Mg Tab PO Not Given DAILY CARISSA Sodium Chloride 10 ml 06/21/20 18:09 06/27/20 08:33 Flush - Normal Saline 10 Ml Syringe IVF 10 ml Q12H PRN Administration Saline Flush Hospitalist Exam Vitals: Vital Signs (12 hours) Temp Pulse Resp BP Pulse Ox 06/28/20 08:00 97.4 F L 82 22 H 123/59 L 97 Weight Admit Weight 170 lb Weight 170 lb General Appearance: NAD, awake alert Eye: PERRL, anicteric sclera ENT: normocephalic atraumatic, no oropharyngeal lesions Neck: no JVD Heart: RRR, no murmur, no gallops, no rubs Respiratory: CTAB, no wheezes, no rales, no ronchi Gastrointestinal: soft, non-tender, non-distended, normal bowel sounds Extremities: no cyanosis, no clubbing, no edema Skin: normal turgor, no lesions, no rashes Hosp A/P - Plan Chest Xray 06/22: decreased right layering pleural effusion CT chest 06/21: large bilateral effusions and numerous bilateral pulmonary nodules with diffuse pulmonary mets. Groundglass opacification throughout the lungs which could represent areas of consolidated pneumonia, atelectasis or metastatic lesions CT brain 06/21: no abnormality CT abdomen: low density liver lesion Chest X ray 06/26: progressive interstitial alveolar and ground glass changes bilaterally worst in right mid and lower lung zone This is an 84 year old male who presented with SOB. He was found to have large bilateral effusions. He had a thoracentesis which showed adenocarcinoma. Family is looking into hospice Acute hypoxic respiratory failure secondary to lung adenocarcinoma vs pneumonia - family is interested in hospice. X-ray on 06/22 showed improving right pleural effusion. CT chest 06/21 showed scattered consolidation and he is on cefdinir empirically. - 06/26: Repeat chest x ray showed progressive interstitial opacities worst on right. Ordered 20 mg IV lasix. - 06/27: discontinue further lasix due to worsening hyponatremia. Will monitor, symptoms are improved - 06/28: will discontinue mucinex since lungs sound overall clear and tablet cannot be crushed. Continue cefdinir Hyponatremia - sodium improved to 126. Will hold off on any further lasix and avoid fluids due to pleural effusion on right side #Liver lesions #Left renal cyst - noted on CT abdomen. Outpatient follow up Dysphagia - consult speech therapy Dispo: continue PT. Pending hospice transfer to outside facility in [place]. need case management assistance with this
[2020-06-28 16:38] LABS: Anion Gap 12 mmol/L (10-20); BUN (Urea Nitrogen) 8 mg/dL (8.4-25.7); Calc. Creatinine Clearance 125 mL/min (70-130); Carbon Dioxide 27 mmol/L (23-31); Chloride 91 mmol/L (98-107); Glucose 73 mg/dL (83-110); Sodium 126 mmol/L (136-145)
[2020-06-29 05:42] LABS: Anion Gap 13 mmol/L (10-20); BUN (Urea Nitrogen) 8 mg/dL (8.4-25.7); Calc. Creatinine Clearance 115 mL/min (70-130); Carbon Dioxide 25 mmol/L (23-31); Chloride 91 mmol/L (98-107); Glucose 79 mg/dL (83-110); Potassium 4.5 mmol/L (3.5-5.1); Sodium 124 mmol/L (136-145)
[2020-06-29 05:45] LABS: Hemoglobin 8.2 g/dL (14.0-18.0); Mean Corpuscular HGB CONC 29.6 g/dL (32.0-36.0); Mean Corpuscular Hemoglobin 20.7 pg (27.0-31.0); Mean Corpuscular Volume 69.8 fL (78.0-98.0); Mean Platelet Volume 9.7 fL (7.4-10.4); Platelet Count 349 thou/uL (130-400); RBC Distribution Width 19.9 % (11.5-14.5); Red Blood Cell (RBC) Count 3.94 mill/uL (4.70-6.10); White Blood Cell (WBC) Count 9.1 thou/uL (4.8-10.8)
[2020-06-29] MEDS: Gabapentin 100 MG CAP PO SCH (08:55)
[2020-06-29] MEDS: Aspirin Chewable 81 MG TAB PO SCH (08:56)
[2020-06-29] MEDS: Ferrous Sulfate 325 MG TAB PO SCH ×2 (08:56→16:51)
[2020-06-29] MEDS: Famotidine 20 MG TAB PO SCH ×2 (08:57→21:11)
[2020-06-29] MEDS: Cefdinir 300 MG CAP PO SCH ×2 (08:57→21:11)
[2020-06-29] MEDS: Amlodipine 5 MG TAB PO SCH (08:57)
[2020-06-29] MEDS: Sodium Chloride 0.9% 1,000 ML IV SCH ×2 (10:43→23:54)
--- NOTE | 2020-06-29 11:34 | PRG ---
DATE OF SERVICE: 06/29/2020 SUBJECTIVE: Tevin Rodas this morning is awake, responsive. He had an x-ray ordered yesterday, which shows no evidence of any recurrent pleural effusion but extensive bilateral pulmonary mets. OBJECTIVE: VITAL SIGNS: Temperature 97, pulse 75, blood pressure 104/61. GENERAL: He is awake, responsive. CHEST: No wheezing. No crackles. CARDIAC: Normal S1, S2. ABDOMEN: No masses. LABORATORY DATA: Sodium is 124. IMPRESSION: Metastatic carcinoma, pleural effusion, hyponatremia. PLAN: 1. Agree with comfort care. 2. Agree with hospice. 3. Pulmonary is going to follow at a distance. Job ID: [id number]
--- NOTE | 2020-06-29 16:17 | PDOC.HOSPP ---
- Subjective Encounter Date: 06/29/20 Encounter Time: 11:00 Subjective: F/u: hyponatremia The patient complains of pain in his right upper thigh, which improved with movement and improved when I massaged it some. He has some orthopnea when laying on the right side. No cough or congestion or significant SOB Spoke about plan for hospice . Grand son was planning on driving here, but ruben ns to come here tomorrow to visit the patient because he was stuck here. They are looking at assisted living facility in [facility] (possibly [place]) or two in [place] . Grandnatalie lives in [place] - Objective Vital Signs & Weight: Vital Signs (12 hours) Temp Pulse Pulse Pulse Resp BP BP 06/29/20 10:45 06/29/20 10:05 71 48 L 113/55 L 06/29/20 08:57 75 104/61 06/29/20 08:40 06/29/20 07:43 97.3 F L 75 18 06/29/20 05:01 97.6 F 69 20 BP BP BP BP Pulse Ox 06/29/20 10:45 113/58 L 06/29/20 10:05 118/57 L 06/29/20 08:57 06/29/20 08:40 96 06/29/20 07:43 104/61 96 06/29/20 05:01 102/58 L 95 Weight Admit Weight 170 lb Weight 170 lb I&O: 06/28/20 06/29/20 06/30/20 06:59 06:59 06:59 Intake Total 1084 Output Total 250 Balance 1084 -250 Result Diagrams: 06/29/20 04:52 06/29/20 04:52 Additional Labs: Accuchecks 06/29/20 06/29/20 06/28/20 12:20 05:01 20:20 POC Glucose 73 87 101 H 06/28/20 06/28/20 06/25/20 17:02 12:11 15:43 POC Glucose 72 83 121 H Hospitalist ROS - Review of Systems Constitutional: denies: fever, chills - Medication Medications: Active Medications Generic Name Dose Route Start Last Admin Trade Name Freq PRN Reason Stop Dose Admin Acetaminophen 650 mg 06/21/20 18:09 06/27/20 16:51 Acetaminophen 325 Mg Tab PO 650 mg Q4H PRN Administration Headache/Fever/Mild Pain (1-3) Amlodipine Besylate 2.5 mg 06/23/20 09:00 06/29/20 08:57 Amlodipine 5 Mg Tab PO 2.5 mg DAILY CARISSA Administration Aspirin 81 mg 06/23/20 09:00 06/29/20 08:56 Aspirin Chewable 81 Mg Tab PO 81 mg DAILY CARISSA Administration Cefdinir 300 mg 06/23/20 21:00 06/29/20 08:57 Cefdinir 300 Mg Cap PO 300 mg BID CARISSA Administration Dextrose/Water 25 gm 06/22/20 09:00 06/22/20 08:20 Dextrose 50% Abboject 50 Ml Syringe IVP 25 gm PRN PRN Administration HYPOGLYCEMIA PROTOCOL Famotidine 20 mg 06/21/20 21:00 06/29/20 08:57 Famotidine 20 Mg Tab PO 20 mg BID CARISSA Administration Ferrous Sulfate 325 mg 06/27/20 17:00 06/29/20 08:56 Ferrous Sulfate 325 Mg Tab PO 325 mg BID-WM CARISSA Administration Gabapentin 100 mg 06/26/20 09:00 06/29/20 08:55 Gabapentin 100 Mg Cap PO 100 mg DAILY CARISSA Administration Sodium Chloride 1,000 mls @ 75 mls/hr 06/29/20 09:45 06/29/20 10:43 Normal Saline 0.9% IV 1,000 mls .[id number] CARISSA Administration Metoprolol Succinate 25 mg 06/23/20 09:00 06/29/20 10:45 Metoprolol Succinate Xl 25 Mg Tab PO 25 mg DAILY CARISSA Administration Sodium Chloride 10 ml 06/21/20 18:09 06/27/20 08:33 Flush - Normal Saline 10 Ml Syringe IVF 10 ml Q12H PRN Administration Saline Flush Hospitalist Exam Vitals: Vital Signs (12 hours) Temp Pulse Pulse Pulse Resp BP BP 06/29/20 10:45 06/29/20 10:05 71 48 L 113/55 L 06/29/20 08:57 75 104/61 06/29/20 08:40 06/29/20 07:43 97.3 F L 75 18 06/29/20 05:01 97.6 F 69 20 BP BP BP BP Pulse Ox 06/29/20 10:45 113/58 L 06/29/20 10:05 118/57 L 06/29/20 08:57 06/29/20 08:40 96 06/29/20 07:43 104/61 96 06/29/20 05:01 102/58 L 95 Weight Admit Weight 170 lb Weight 170 lb General Appearance: NAD, awake alert Eye: PERRL, anicteric sclera ENT: normocephalic atraumatic, no oropharyngeal lesions Neck: no JVD Heart: RRR, no murmur, no gallops, no rubs Respiratory: CTAB, no wheezes, no rales, no ronchi Gastrointestinal: soft, non-tender, non-distended, normal bowel sounds Extremities: no cyanosis, no clubbing, no edema Skin: normal turgor, no lesions, no rashes Neurological: cranial nerve grossly intact, normal sensation to touch, no focal deficits, no new deficit Hosp A/P - Plan Consults: other Chest Xray 06/22: decreased right layering pleural effusion CT chest 06/21: large bilateral effusions and numerous bilateral pulmonary nodules with diffuse pulmonary mets. Groundglass opacification throughout the lungs w hich could represent areas of consolidated pneumonia, atelectasis or metastatic lesions CT brain 06/21: no abnormality CT abdomen: low density liver lesion Chest X ray 06/26: progressive interstitial alveolar and ground glass changes bilaterally worst in right mid and lower lung zone This is an 84 year old male who presented with SOB. He was found to have large bilateral effusions. He had a thoracentesis which showed adenocarcinoma. Family is looking into hospice Acute hypoxic respiratory failure secondary to lung adenocarcinoma vs pneumonia - family is interested in hospice. 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 X-ray on 06/22 showed improving right pleural effusion. CT chest 06/21 showed scattered consolidation and he is on cefdinir empirically started by pulmonary - he received lasix on 06/26 for progressive bilateral opacities, but discontinued due to worsening hyponatremia. Cough/congestion has improved significantly. Will repeat chest X ray to evaluate for improvement - family is looking into assisted living in [place] or [place]. He will come to visit the patient and discuss options with the patient tomorrow Hyponatremia - sodium worsened to 124. Will start IV fluids for one liter and repeat BMP this afternoon Iron deficiency anemia -possibly GI bleeding - Hb 7, had one black stool yesterday. Occult blood positive. Will consult GI. Continue iron supplementation for now. Hb has improved to 8 - will order protonix IV #Liver lesions #Left renal cyst - noted on CT abdomen. Outpatient follow up Dysphagia - consult speech therapy
--- NOTE | 2020-06-29 16:33 | RAD ---
EXAM: Chest one view: HISTORY: Follow-up abnormal pulmonary opacities COMPARISON: 06/26/2020 FINDINGS: Heart size: Borderline in size. Lungs: Again noted are extensive alveolar, nodular, and groundglass opacity changes throughout both l ungs showing little change from prior exam. Right-sided pleural thickening and calcification. No pneumothorax or evidence for pneumomediastinum. IMPRESSION: Little change in extensive bilateral pulmonary opacities and evidence for pleural effusion.
[2020-06-29 17:47] LABS: Anion Gap 14 mmol/L (10-20); BUN (Urea Nitrogen) 12 mg/dL (8.4-25.7); Calc. Creatinine Clearance 117 mL/min (70-130); Calcium 7.8 mg/dL (7.8-10.44); Carbon Dioxide 22 mmol/L (23-31); Chloride 93 mmol/L (98-107); Glucose 109 mg/dL (83-110); Potassium 4.9 mmol/L (3.5-5.1); Sodium 124 mmol/L (136-145)
[2020-06-29] MEDS: Pantoprazole 40 MG VIAL IVP SCH (21:11)
[2020-06-30 07:15] LABS: Anion Gap 13 mmol/L (10-20); BUN (Urea Nitrogen) 9 mg/dL (8.4-25.7); Calc. Creatinine Clearance 122 mL/min (70-130); Calcium 7.9 mg/dL (7.8-10.44); Carbon Dioxide 20 mmol/L (23-31); Chloride 95 mmol/L (98-107); Glucose 77 mg/dL (83-110); Potassium 4.4 mmol/L (3.5-5.1); Sodium 124 mmol/L (136-145)
[2020-06-30] MEDS: Ferrous Sulfate 325 MG TAB PO SCH ×2 (08:21→15:57)
[2020-06-30] MEDS: Cefdinir 300 MG CAP PO SCH (08:21)
[2020-06-30] MEDS: Famotidine 20 MG TAB PO SCH ×2 (08:21→19:56)
[2020-06-30] MEDS: Aspirin Chewable 81 MG TAB PO SCH (08:21)
[2020-06-30] MEDS: Amlodipine 5 MG TAB PO SCH (08:22)
[2020-06-30] MEDS: Gabapentin 100 MG CAP PO SCH (08:22)
[2020-06-30] MEDS: Pantoprazole 40 MG VIAL IVP SCH ×2 (08:26→19:57)
[2020-06-30] MEDS ORDERED: Ondansetron PF 4 MG/2 ML Vial IVP PRN (10:47)
--- NOTE | 2020-06-30 11:28 | PRG ---
DATE OF SERVICE: 06/30/2020 SUBJECTIVE: Tevin Rodas is awake, alert, responsive. OBJECTIVE: VITAL SIGNS: Temperature 97, pulse 76, blood pressure 130/64, saturations 97% on 2 L. CHEST: No wheezing. No crackles. CARDIAC: Normal S1. ABDOMEN: No mass. LABORATORY DATA: X-ray was ordered and it showed diffuse multiple lung masses. He is denying any difficulty breathing. ASSESSMENT: Respiratory failure, metastatic disease. PLAN: Discontinue antibiotics, eventually placement. Job ID: [id number]
[2020-06-30] MEDS: Acetaminophen 325 MG TAB PO PRN (15:56)
--- NOTE | 2020-06-30 16:09 | CON ---
DATE OF CONSULTATION: 06/30/2020 CONSULTING PHYSICIAN: Dr. Jose. REASON FOR CONSULTATION: Hyponatremia. REASON FOR ADMISSION: Shortness of breath and weakness. HISTORY OF PRESENT ILLNESS: This is an 84-year-old male with history of hyperlipidemia, hypertension, came to the hospital with weakness and was found to have lung masses with metastatic cancer, acute hypoxic respiratory failure. He also has liver lesions. He was found to have hyponatremia at 124, and Nephrology is consulted since sodium is not improving. PAST MEDICAL HISTORY: Positive for hyperlipidemia, hypertension. PAST SURGICAL HISTORY: Cholecystectomy. HOME MEDICATIONS: Reviewed. ALLERGIES: NO KNOWN DRUG ALLERGIES. SOCIAL HISTORY: Remote history of smoking in the past. No alcohol or illicit drug abuse. REVIEW OF SYSTEMS: The following complete review of systems was negative, unless otherwise mentioned in the HPI or below: Constitutional: Weight loss or gain, ability to conduct usual activities. Skin: Rash, itching. Eyes: Double vision, pain. ENT/Mouth: Nose bleeding, neck stiffness, pain, tenderness. Cardiovascular: Palpitations, dyspnea on exertion, orthopnea. Respiratory: Shortness of breath, wheezing, cough, hemoptysis, fever or night sweats. Gastrointestinal: Poor appetite, abdominal pain, heartburn, nausea, vomiting, constipation, or diarrhea. Genitourinary: Urgency, frequency, dysuria, nocturia. Musculoskeletal: Pain, swelling. Neurologic/Psychiatric: Anxiety, depression. Allergy/Immunologic: Skin rash, bleeding tendency. FAMILY HISTORY: No history of kidney disease. PHYSICAL EXAMINATION: GENERAL: This is an elderly male, in no apparent distress. VITAL SIGNS: Temperature 97.6, pulse 73, respiratory rate 20, blood pressure 106/55. HEENT: Atraumatic, normocephalic. Oral mucosa is moist. NECK: Supple. CV: S1 and S2, rate and rhythm regular. RESPIRATORY: Clear. GI: Abdomen is soft. MUSCULOSKELETAL: 1+ edema. DERMATOLOGIC: No skin rash. NEUROLOGIC: Alert and awake. PSYCHIATRIC: Normal mood and affect. LABORATORY DATA: Sodium 124, creatinine is 0.5. ASSESSMENT AND PLAN: 1. Hyponatremia, seems to be secondary to poor intake and syndrome of inappropriate antidiuretic hormone secretion. We would recommend fluid restriction, but seems like family might be opting for hospice arrangements. We would fluid restrict for now. May not be a candidate for tolvaptan. We will have 1500 mL fluid restriction. Advised the patient to increase protein intake. 2. Edema, controlled. 3. Hypertension. 4. Hypochloremia. 5. Mild acidosis. 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 7. Lung cancer with metastasis. Poor prognosis. Follow with family. We will put on fluid restriction. Thank you for the consult. Job ID: [id number]
--- NOTE | 2020-06-30 17:25 | PDOC.HOSPP ---
- Subjective Encounter Date: 06/30/20 Encounter Time: 14:00 Subjective: F/u: lung cancer The patient is doing better, no cough or shortness of breath. His appetite is good. Awaiting on his family member to get here to discuss placement options - Objective Vital Signs & Weight: Vital Signs (12 hours) Temp Pulse Pulse Resp BP BP BP 06/30/20 16:00 97.5 F L 65 20 94/50 L 06/30/20 11:20 97.6 F 73 20 106/55 L 06/30/20 11:12 56 L 101/54 L 06/30/20 08:22 76 131/64 06/30/20 08:00 97.3 F L 60 20 131/64 Pulse Ox Pulse Ox Pulse Ox Pulse Ox 06/30/20 16:00 98 06/30/20 11:20 100 06/30/20 11:12 90 L 88 L 92 L 06/30/20 08:22 06/30/20 08:00 96 Weight Admit Weight 170 lb Weight 170 lb I&O: 06/29/20 06/30/20 07/01/20 06:59 06:59 06:59 Intake Total 1405 Output Total 250 Balance -250 1405 Result Diagrams: 06/29/20 04:52 06/30/20 06:35 Additional Labs: Accuchecks 06/30/20 06/30/20 06/29/20 10:51 05:19 20:23 POC Glucose 79 88 92 Hospitalist ROS - Review of Systems Constitutional: denies: fever, chills - Medication Medications: Active Medications Generic Name Dose Route Start Last Admin Trade Name Hareshq PRN Reason Stop Dose Admin Acetaminophen 650 mg 06/21/20 18:09 06/30/20 15:56 Acetaminophen 325 Mg Tab PO 650 mg Q4H PRN Administration Headache/Fever/Mild Pain (1-3) Amlodipine Besylate 2.5 mg 06/23/20 09:00 06/30/20 08:22 Amlodipine 5 Mg Tab PO 2.5 mg DAILY CARISSA Administration Aspirin 81 mg 06/23/20 09:00 06/30/20 08:21 Aspirin Chewable 81 Mg Tab PO 81 mg DAILY CARISSA Administration Dextrose/Water 25 gm 06/22/20 09:00 06/22/20 08:20 Dextrose 50% Abboject 50 Ml Syringe IVP 25 gm PRN PRN Administration HYPOGLYCEMIA PROTOCOL Famotidine 20 mg 06/21/20 21:00 06/30/20 08:21 Famotidine 20 Mg Tab PO 20 mg BID CARISSA Administration Ferrous Sulfate 325 mg 06/27/20 17:00 06/30/20 15:57 Ferrous Sulfate 325 Mg Tab PO 325 mg BID-WM CARISSA Administration Gabapentin 100 mg 06/26/20 09:00 06/30/20 08:22 Gabapentin 100 Mg Cap PO 100 mg DAILY CARISSA Administration Metoprolol Succinate 25 mg 06/23/20 09:00 06/30/20 08:21 Metoprolol Succinate Xl 25 Mg Tab PO 25 mg DAILY CARISSA Administration Ondansetron HCl 4 mg 06/30/20 10:47 06/30/20 11:21 Ondansetron Pf 4 Mg/2 Ml Vial IVP 4 mg Q6H PRN Administration Nausea/Vomiting Pantoprazole Sodium 40 mg 06/29/20 21:00 06/30/20 08:26 Pantoprazole 40 Mg Vial IVP 40 mg Q12HR CARISSA Administration Sodium Chloride 10 ml 06/21/20 18:09 06/27/20 08:33 Flush - Normal Saline 10 Ml Syringe IVF 10 ml Q12H PRN Administration Saline Flush Hospitalist Exam Vitals: Vital Signs (12 hours) Temp Pulse Pulse Resp BP BP BP 06/30/20 16:00 97.5 F L 65 20 94/50 L 06/30/20 11:20 97.6 F 73 20 106/55 L 06/30/20 11:12 56 L 101/54 L 06/30/20 08:22 76 131/64 06/30/20 08:00 97.3 F L 60 20 131/64 Pulse Ox Pulse Ox Pulse Ox Pulse Ox 06/30/20 16:00 98 06/30/20 11:20 100 06/30/20 11:12 90 L 88 L 92 L 06/30/20 08:22 06/30/20 08:00 96 Weight Admit Weight 170 lb Weight 170 lb General Appearance: NAD, awake alert Eye: PERRL, anicteric sclera ENT: normocephalic atraumatic, no oropharyngeal lesions Neck: no JVD Heart: RRR, no murmur, no gallops, no rubs Respiratory: CTAB, no wheezes, no rales, no ronchi, normal percussion Gastrointestinal: soft, non-tender, non-distended, normal bowel sounds, no splenomegaly Extremities: no cyanosis, no clubbing, no edema Skin: normal turgor, no lesions, no rashes Neurological: cranial nerve grossly intact, normal sensation to touch, no focal deficits, no new deficit Hosp A/P - Plan Chest Xray 06/22: decreased right layering pleural effusion CT chest 06/21: large bilateral effusions and numerous bilateral pulmonary nodules with diffuse pulmonary mets. Groundglass opacification throughout the lungs which could represent areas of consolidated pneumonia, atelectasis or metastatic lesions CT brain 06/21: no abnormality CT abdomen: low density liver lesion Chest X ray 06/26: progressive interstitial alveolar and ground glass changes bilaterally worst in right mid and lower lung zone This is an 84 year old male who presented with SOB. He was found to have large bilateral effusions. He had a thoracentesis which showed adenocarcinoma. Family is looking into hospice Acute hypoxic respiratory failure secondary to lung adenocarcinoma vs pneumonia - family is interested in hospice. 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 X-ray on 06/22 showed improving right pleural effusion. CT chest 06/21 showed scattered consolidation and he is on cefdinir empirically started by pulmonary which was discontinued today - he received lasix on 06/26 for progressive bilateral opacities, but discontinued due to worsening hyponatremia. Cough/congestion has improved significantly. Repeat chest X ray is stable - family is looking into assisted living in [place] or [place]. He will come to visit the patient and discuss options with the patient tomorrow Hyponatremia - sodium is still 124 after IV fluids. It worsened after lasix as well. Nephrology consulted and started fluid restriction Iron deficiency anemia with history of rectal cancer - Hb 7, stable. GI stated patient has history of rectal cancer - will monitor, continue iron supplements #Liver lesions #Left renal cyst - noted on CT abdomen. Outpatient follow up Dysphagia - consult speech therapy Dispo: pending placement with outpatient hospice
[2020-07-01 06:31] LABS: Anion Gap 10 mmol/L (10-20); BUN (Urea Nitrogen) 13 mg/dL (8.4-25.7); Calc. Creatinine Clearance 113 mL/min (70-130); Carbon Dioxide 25 mmol/L (23-31); Chloride 93 mmol/L (98-107); Glucose 96 mg/dL (83-110); Potassium 4.4 mmol/L (3.5-5.1); Sodium 124 mmol/L (136-145)
[2020-07-01] MEDS: Pantoprazole 40 MG VIAL IVP SCH ×2 (08:40→19:55)
[2020-07-01] MEDS: Amlodipine 5 MG TAB PO SCH (08:40)
[2020-07-01] MEDS: Famotidine 20 MG TAB PO SCH (08:40)
[2020-07-01] MEDS: Aspirin Chewable 81 MG TAB PO SCH (08:40)
[2020-07-01] MEDS: Ferrous Sulfate 325 MG TAB PO SCH ×2 (08:41→17:38)
[2020-07-01] MEDS: Gabapentin 100 MG CAP PO SCH (08:42)
--- NOTE | 2020-07-01 11:49 | PRG ---
DATE OF SERVICE: 07/01/2020 SUBJECTIVE: Tevin Rodas, this morning, is awake, alert, responsive, sitting upright in bed. OBJECTIVE: VITAL SIGNS: Pulse 80, respirations 20, blood pressure 110/80, sats are 94%. GENERAL: Denies any pain. Some shortness of breath. CHEST: Bilateral rhonchi. CARDIAC: Normal S1 and S2. No gallops. ABDOMEN: Soft. IMPRESSION: Metastatic colon cancer, bilateral pulmonary nodules, respiratory failure. PLAN: Comfort care. Awaiting Hospice input. Job ID: [id number]
--- NOTE | 2020-07-01 14:44 | PDOC.HOSPP ---
- Subjective Encounter Date: 07/01/20 Encounter Time: 08:00 Subjective: F/u: lung cancer The patient is doing well, but has decrease appetite. He is on 1.5L fluid restriction, grand-son thinks he drinks less than that. He has no cough, shortness of breath, nausea or vomiting Grandson is looking into a few assisted living facilities and discussing with manager hematology currently. From there they plan to do hospice - Objective Vital Signs & Weight: Vital Signs (12 hours) Temp Pulse Resp BP BP Pulse Ox 07/01/20 08:40 55 L 120/56 L 07/01/20 07:40 99 07/01/20 07:20 97.3 F L 55 L 20 108/46 L 99 07/01/20 04:00 18 99 Weight Admit Weight 170 lb Weight 170 lb I&O: 06/30/20 07/01/20 07/02/20 06:59 06:59 06:59 Intake Total 1405 575 Balance 1405 575 Result Diagrams: 06/29/20 04:52 07/01/20 05:45 Additional Labs: Accuchecks 07/01/20 06/30/20 11:40 16:04 POC Glucose 102 H 119 H Hospitalist ROS - Review of Systems Constitutional: denies: fever, chills - Medication Medications: Active Medications Generic Name Dose Route Start Last Admin Trade Name Freq PRN Reason Stop Dose Admin Acetaminophen 650 mg 06/21/20 18:09 06/30/20 15:56 Acetaminophen 325 Mg Tab PO 650 mg Q4H PRN Administration Headache/Fever/Mild Pain (1-3) Amlodipine Besylate 2.5 mg 06/23/20 09:00 07/01/20 08:40 Amlodipine 5 Mg Tab PO 2.5 mg DAILY CARISSA Administration Aspirin 81 mg 06/23/20 09:00 07/01/20 08:40 Aspirin Chewable 81 Mg Tab PO 81 mg DAILY CARISSA Administration Dextrose/Water 25 gm 06/22/20 09:00 06/22/20 08:20 Dextrose 50% Abboject 50 Ml Syringe IVP 25 gm PRN PRN Administration HYPOGLYCEMIA PROTOCOL Ferrous Sulfate 325 mg 06/27/20 17:00 07/01/20 08:41 Ferrous Sulfate 325 Mg Tab PO 325 mg BID-WM CARISSA Administration Gabapentin 100 mg 06/26/20 09:00 07/01/20 08:42 Gabapentin 100 Mg Cap PO 100 mg DAILY CARISSA Administration Metoprolol Succinate 25 mg 06/23/20 09:00 07/01/20 08:42 Metoprolol Succinate Xl 25 Mg Tab PO 25 mg DAILY CARISSA Administration Ondansetron HCl 4 mg 06/30/20 10:47 06/30/20 11:21 Ondansetron Pf 4 Mg/2 Ml Vial IVP 4 mg Q6H PRN Administration Nausea/Vomiting Pantoprazole Sodium 40 mg 06/29/20 21:00 07/01/20 08:40 Pantoprazole 40 Mg Vial IVP 40 mg Q12HR CARISSA Administration Sodium Chloride 10 ml 06/21/20 18:09 07/01/20 08:44 Flush - Normal Saline 10 Ml Syringe IVF 10 ml Q12H PRN Administration Saline Flush Hospitalist Exam Vitals: Vital Signs (12 hours) Temp Pulse Resp BP BP Pulse Ox 07/01/20 08:40 55 L 120/56 L 07/01/20 07:40 99 07/01/20 07:20 97.3 F L 55 L 20 108/46 L 99 07/01/20 04:00 18 99 Weight Admit Weight 170 lb Weight 170 lb General Appearance: NAD, awake alert Eye: PERRL, anicteric sclera ENT: normocephalic atraumatic, no oropharyngeal lesions Neck: supple, symmetric, no JVD, no thyromegaly Heart: RRR, no murmur, no gallops, no rubs Respiratory: CTAB, no wheezes, no rales, no ronchi Gastrointestinal: soft, non-tender, non-distended, normal bowel sounds Extremities: no cyanosis, no clubbing, no edema Skin: normal turgor, no lesions, no rashes Neurological: cranial nerve grossly intact, normal sensation to touch Hosp A/P - Plan Chest Xray 06/22: decreased right layering pleural effusion CT chest 06/21: large bilateral effusions and numerous bilateral pulmonary nodules with diffuse pulmonary mets. Groundglass opacification throughout the lungs which could represent areas of consolidated pneumonia, atelectasis or metastatic lesions CT brain 06/21: no abnormality CT abdomen: low density liver lesion Chest X ray 06/26: progressive interstitial alveolar and ground glass changes bilaterally worst in right mid and lower lung zone This is an 84 year old male who presented with SOB. He was found to have large bilateral effusions. He had a thoracentesis which showed adenocarcinoma. Family is looking into hospice Acute hypoxic respiratory failure secondary to lung adenocarcinoma vs pneumonia - chest Xray showed bilateral effusions. Patient had thoracentesis with cytology positive for adenocarcinoma. X-ray on 06/22 showed improving right pleural effusion. CT chest 06/21 showed scattered consolidation. He finished a course of antibiotics with cefdinir - received IV lasix for pleural effusion, but discontinued due to hyponatremia. Currently stable on 2L of oxygen. Plan to dc to hospice once assisted living facility is set up Hyponatremia - sodium is still 124 after IV fluids. It worsened after lasix as well. 1.5L fluid restriction implemented 06/30, sodium still 124. Patient is asymptomatic. Nephrology on board, will monitor Iron deficiency anemia with history of rectal cancer - Hb 8.2, stable. GI stated patient has history of rectal cancer - will monitor, continue iron supplements #Liver lesions #Left renal cyst - noted on CT abdomen. Outpatient follow up Dysphagia - consult speech therapy Dispo: pending placement with outpatient hospice
--- NOTE | 2020-07-01 15:16 | PDOC.MOPN ---
Interval History: eating poorly, alert with no pain. - Vital Signs Vital Signs: Vital Signs (12 hours) Temp Pulse Resp BP BP Pulse Ox 07/01/20 08:40 55 L 120/56 L 07/01/20 07:40 99 07/01/20 07:20 97.3 F L 55 L 20 108/46 L 99 07/01/20 04:00 18 99 Weight Admit Weight 170 lb Weight 170 lb - Physical Exam General: Alert Neurological: Normal speech - Labs Result Diagrams: 06/29/20 04:52 07/01/20 05:45 Lab results: Laboratory Results - last 24 hr 07/01/20 11:40: POC Glucose 102 H 07/01/20 05:45: Sodium 124 L, Potassium 4.4, Chloride 93 L, Carbon Dioxide 25, Anion Gap 10, BUN 13, Creatinine 0.54 L, Estimated GFR (MDRD) Greater than 90, Glucose 96, Calcium 8.0 06/30/20 16:04: POC Glucose 119 H 06/22/20 10:30: Fungal Smear Not Reportable, Fungal Smear Result 2 Not Reportable Status: lab reviewed by me A/P - Problem (1) 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
[2020-07-01] MEDS ORDERED: Furosemide 20 MG/2 ML VIAL SLOW IVP SCH (16:15)
--- NOTE | 2020-07-02 06:05 | PRG ---
DATE OF SERVICE: 07/01/2020 SUBJECTIVE: Patient was seen and examined at bedside and overnight events noted. Patient denies any shortness of breath or chest pain or palpitation. No history of nausea or vomiting or diarrhea or fever or chills or cramps. OBJECTIVE: General: This is a well-built male, in no acute distress. Vital Signs: Temperature 97.3. Heart Rate 55. Respiratory rate 19. Blood pressure HEENT: Atraumatic, normocephalic. Oral mucosa is moist. Neck: Supple. Cardiovascular: S1, S2 heard. Rate and rhythm regular. Respiratory: Clear to auscultation. Gastrointestinal: Abdomen is soft. Musculoskeletal: No tenderness. No edema. Dermatologic: No skin rash. Neurologic: Alert and awake and oriented x3. No focal neurologic deficits. Moving all the extremities. Psychiatric: Mood and affect normal. LABORATORY DATA: Sodium 124 and creatinine 0.5. 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 Continue on fluid restriction. Even though candidate, may not be appropriate in this situation. I encouraged family to increase his protein intake and limit his fluid as much as he can. 2. Edema, controlled. 3. Hypertension. 4. hypochloremia. 5. Mild acidosis. 6. Syndrome of inappropriate antidiuretic hormone. 7. Lung cancer with metastasis. Monitor sodium. We will follow. Job ID: [id number]
[2020-07-02] MEDS: Gabapentin 100 MG CAP PO SCH (09:07)
[2020-07-02] MEDS: Ferrous Sulfate 325 MG TAB PO SCH ×2 (09:07→17:22)
[2020-07-02] MEDS: Amlodipine 5 MG TAB PO SCH (09:07)
[2020-07-02] MEDS: Aspirin Chewable 81 MG TAB PO SCH (09:07)
[2020-07-02] MEDS: Pantoprazole 40 MG VIAL IVP SCH ×2 (09:08→19:37)
[2020-07-02 09:15] LABS: Anion Gap 15 mmol/L (10-20); BUN (Urea Nitrogen) 14 mg/dL (8.4-25.7); Calc. Creatinine Clearance 113 mL/min (70-130); Carbon Dioxide 22 mmol/L (23-31); Chloride 91 mmol/L (98-107); Glucose 100 mg/dL (83-110); Potassium 4.5 mmol/L (3.5-5.1); Sodium 123 mmol/L (136-145)
--- NOTE | 2020-07-02 10:42 | RAD ---
PORTABLE CHEST 1 VIEW: Date: 07/02/2020 Time: 0956 hours HISTORY: Follow-up pleural effusion. COMPARISON: 06/29/2020. FINDINGS: The heart is enlarged. The aorta is tortuous. Nodular densities and opacities in the lung jamison bila terally are again seen. Bilateral pleural effusions are again noted. No pneumothoraces are identified . The aorta is tortuous. There are degenerative changes in the spine. IMPRESSION: Stable exam. POS: OFF
--- NOTE | 2020-07-02 10:48 | PDOC.HOSPP ---
- Subjective Encounter Date: 07/02/20 Encounter Time: 09:00 Subjective: F?u: shortness of breath The patient states his breathing has improved. He urinated a lot last night, received a dose of IV lasix. CXR shows mild improvement but is mostly metastases He complains of nasal congestion and is using humdified oxygen. He wants to try a nasal spray The grandson is touring [employer] [facility] [employer] today at 1:00 pm - Objective Vital Signs & Weight: Vital Signs (12 hours) Temp Pulse Resp BP BP Pulse Ox 07/02/20 09:07 67 121/49 L 07/02/20 08:00 98 07/02/20 07:34 97.2 F L 67 16 121/49 L 98 Weight Admit Weight 170 lb Weight 170 lb I&O: 07/01/20 07/02/20 07/03/20 06:59 06:59 06:59 Intake Total 575 580 Balance 575 580 Result Diagrams: 06/29/20 04:52 07/02/20 08:48 Additional Labs: Accuchecks 07/02/20 07/01/20 07/01/20 05:17 20:37 15:50 POC Glucose 88 103 H 112 H 07/01/20 11:40 POC Glucose 102 H Hospitalist ROS - Review of Systems Constitutional: denies: fever, chills - Medication Medications: Active Medications Generic Name Dose Route Start Last Admin Trade Name Freq PRN Reason Stop Dose Admin Acetaminophen 650 mg 06/21/20 18:09 06/30/20 15:56 Acetaminophen 325 Mg Tab PO 650 mg Q4H PRN Administration Headache/Fever/Mild Pain (1-3) Amlodipine Besylate 2.5 mg 06/23/20 09:00 07/02/20 09:07 Amlodipine 5 Mg Tab PO 2.5 mg DAILY CARISSA Administration Aspirin 81 mg 06/23/20 09:00 07/02/20 09:07 Aspirin Chewable 81 Mg Tab PO 81 mg DAILY CARISSA Administration Dextrose/Water 25 gm 06/22/20 09:00 06/22/20 08:20 Dextrose 50% Abboject 50 Ml Syringe IVP 25 gm PRN PRN Administration HYPOGLYCEMIA PROTOCOL Ferrous Sulfate 325 mg 06/27/20 17:00 07/02/20 09:07 Ferrous Sulfate 325 Mg Tab PO 325 mg BID-WM CARISSA Administration Gabapentin 100 mg 06/26/20 09:00 07/02/20 09:07 Gabapentin 100 Mg Cap PO 100 mg DAILY CARISSA Administration Metoprolol Succinate 25 mg 06/23/20 09:00 07/02/20 09:06 Metoprolol Succinate Xl 25 Mg Tab PO Not Given DAILY CARISSA Ondansetron HCl 4 mg 06/30/20 10:47 06/30/20 11:21 Ondansetron Pf 4 Mg/2 Ml Vial IVP 4 mg Q6H PRN Administration Nausea/Vomiting Pantoprazole Sodium 40 mg 06/29/20 21:00 07/02/20 09:08 Pantoprazole 40 Mg Vial IVP 40 mg Q12HR CARISSA Administration Sodium Chloride 10 ml 06/21/20 18:09 07/01/20 08:44 Flush - Normal Saline 10 Ml Syringe IVF 10 ml Q12H PRN Administration Saline Flush Sodium Chloride 10 ml 06/21/20 18:09 07/01/20 17:40 Flush - Normal Saline 10 Ml Syringe IVF 10 ml PRN PRN Administration Saline Flush Hospitalist Exam Vitals: Vital Signs (12 hours) Temp Pulse Resp BP BP Pulse Ox 07/02/20 09:07 67 121/49 L 07/02/20 08:00 98 07/02/20 07:34 97.2 F L 67 16 121/49 L 98 Weight Admit Weight 170 lb Weight 170 lb General Appearance: NAD, awake alert General - other findings: cachexic Eye: PERRL, anicteric sclera ENT: normocephalic atraumatic, no oropharyngeal lesions Neck: no JVD Heart: RRR, no murmur, no gallops, no rubs Respiratory: CTAB, no wheezes, no rales, no ronchi Gastrointestinal: soft, non-tender, non-distended, normal bowel sounds, no palpable masses Extremities: no cyanosis, no clubbing, no edema Skin: normal turgor, no lesions, no rashes Neurological: cranial nerve grossly intact, normal sensation to touch, no weakness Hosp A/P - Plan Chest Xray 06/22: decreased right layering pleural effusion CT chest 06/21: large bilateral effusions and numerous bilateral pulmonary nodules with diffuse pulmonary mets. Groundglass opacification throughout the lungs which could represent areas of consolidated pneumonia, atelectasis or metastatic lesions CT brain 06/21: no abnormality CT abdomen: low density liver lesion Chest X ray 06/26: progressive interstitial alveolar and ground glass changes bilaterally worst in right mid and lower lung zone This is an 84 year old male who presented with SOB. He was found to have large bilateral effusions. He had a thoracentesis which showed adenocarcinoma. Family is looking into hospice Acute hypoxic respiratory failure secondary to lung adenocarcinoma vs pneumonia - chest Xray showed bilateral effusions. Patient had thoracentesis with cytology positive for adenocarcinoma. X-ray on 06/[address] eural effusion. CT chest 06/21 showed scattered consolidation. He finished a course of 7 days of antibiotics with cefdinir on 06/30 - received IV lasix 06/26 and again 07/01 . Cannot give daily lasix due to worsening hyponatremia with it. Repeat chest Xray 07/01 shows bilateral pleural effusions, extensive cancer. Per Dr. Quezada, there is not enough to drain. 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 He is on 1.5L fluid restriction. Sodium did not improve with fluids either. 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 GI stated patient has history of rectal cancer - will monitor, continue iron supplements #Liver lesions #Left renal cyst - noted on CT abdomen. Outpatient follow up Dysphagia - consult speech therapy Dispo: son deciding on assisted living facility first, then set up hospice once that is arranged
[2020-07-02] MEDS ORDERED: Tolvaptan 15 MG TAB PO ONE (12:15)
--- NOTE | 2020-07-02 12:21 | PRG ---
DATE OF SERVICE: 07/02/2020 SUBJECTIVE: This morning, he said his nose is stuffed up. Otherwise, breathing is better. OBJECTIVE: VITAL SIGNS: Temperature 97, pulse , blood pressure 121/49, sats are 98% on 2 L, respiratory rate 16. CHEST: No wheezing, crackles, or rhonchi. CARDIAC: Normal S1, S2. No gallops. ABDOMEN: No masses. LABORATORY DATA: Sodium is 123. ASSESSMENT: Metastatic colon cancer, hyponatremia, possible pleural effusion. PLAN: Comfort care. We are going to do the chest x-ray to see whether he may need another thoracentesis and if effusion has come back. We will follow. Job ID: [id number]
--- NOTE | 2020-07-02 12:25 | PRG ---
DATE OF SERVICE: 07/02/2020 SUBJECTIVE: Patient was seen and examined at bedside and overnight events noted. Patient denies any shortness of breath or chest pain or palpitation. No history of nausea or vomiting or diarrhea or fever or chills or cramps. OBJECTIVE: GENERAL: This is a well-built male, in no apparent distress. VITAL SIGNS: Temperature 97.2. Heart Rate 67. Respiratory rate 16. Blood pressure 121/49. HEENT: Atraumatic, normocephalic. Oral mucosa is moist. NECK: Supple. CARDIOVASCULAR: S1, S2 heard. Rate and rhythm regular. RESPIRATORY: Clear to auscultation. GASTROINTESTINAL: Abdomen is soft. MUSCULOSKELETAL: No tenderness. No edema. DERMATOLOGIC: No skin rash. NEUROLOGIC: Alert and awake and oriented x3. No focal neurologic deficits. Moving all the extremities. PSYCHIATRIC: Mood and affect normal. LABORATORY DATA: Sodium 123, potassium 4.5, BUN is 14, creatinine is 0.5. ASSESSMENT AND PLAN: 1. 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 The patient is on fluid restriction. Tried Lasix also yesterday, no improvement. Continue on fluid restriction. 2. Edema, controlled. 3. . 4. Hypochloremia. 5. Mild acidosis. 6. Syndrome of inappropriate antidiuretic hormone. 7. Lung cancer with metastasis. Plan is to try tolvaptan today and monitor sodium. We will follow. Job ID: [id number]
[2020-07-02] MEDS ORDERED: TOLVAPTAN 30 MG TAB PO SCH (12:45)
[2020-07-02] MEDS: Acetaminophen 325 MG TAB PO PRN (18:32)
[2020-07-02] MEDS: Fluticasone Propionate Nasal Spray 16 gm Bottle NASAL SCH (19:37)
[2020-07-02] MEDS ORDERED: Fluticasone Propionate Nasal Spray 16 gm Bottle NASAL SCH (21:00)
[2020-07-03 07:25] LABS: Anion Gap 12 mmol/L (10-20); BUN (Urea Nitrogen) 14 mg/dL (8.4-25.7); Calc. Creatinine Clearance 107 mL/min (70-130); Calcium 8.6 mg/dL (7.8-10.44); Carbon Dioxide 27 mmol/L (23-31); Chloride 97 mmol/L (98-107); Glucose 88 mg/dL (83-110); Potassium 4.4 mmol/L (3.5-5.1); Sodium 132 mmol/L (136-145)
[2020-07-03 07:31] LABS: Hemoglobin 8.4 g/dL (14.0-18.0); Mean Corpuscular HGB CONC 29.9 g/dL (32.0-36.0); Mean Corpuscular Hemoglobin 21.1 pg (27.0-31.0); Mean Corpuscular Volume 70.5 fL (78.0-98.0); Mean Platelet Volume 8.9 fL (7.4-10.4); Platelet Count 536 thou/uL (130-400); RBC Distribution Width 21.2 % (11.5-14.5); Red Blood Cell (RBC) Count 3.96 mill/uL (4.70-6.10); White Blood Cell (WBC) Count 9.4 thou/uL (4.8-10.8)
[2020-07-03] MEDS: Pantoprazole 40 MG VIAL IVP SCH ×2 (09:04→19:29)
[2020-07-03] MEDS: Aspirin Chewable 81 MG TAB PO SCH (09:05)
[2020-07-03] MEDS: Gabapentin 100 MG CAP PO SCH (09:05)
[2020-07-03] MEDS: Amlodipine 5 MG TAB PO SCH (09:05)
[2020-07-03] MEDS: Ferrous Sulfate 325 MG TAB PO SCH ×2 (09:05→17:37)
[2020-07-03] MEDS: Fluticasone Propionate Nasal Spray 16 gm Bottle NASAL SCH ×2 (09:07→19:28)
[2020-07-03] MEDS ORDERED: Sodium Chloride 0.65% Nasal 44 ML BOT EA NARE PRN (11:22)
--- NOTE | 2020-07-03 15:23 | PDOC.HOSPP ---
- Subjective Encounter Date: 07/03/20 Encounter Time: 13:30 Subjective: Patient seen in follow-up for acute hypoxic respiratory failure. Denies chest pain. He had an episode of epistaxis last night. - Objective Vital Signs & Weight: Vital Signs (12 hours) Temp Pulse Resp BP Pulse Ox 07/03/20 09:05 86 07/03/20 08:15 98.1 F 86 15 102/57 L 96 07/03/20 08:00 96 Weight Admit Weight 170 lb Weight 170 lb I&O: 07/02/20 07/03/20 07/04/20 06:59 06:59 06:59 Intake Total 580 Balance 580 Result Diagrams: 07/03/20 06:28 07/03/20 06:28 Additional Labs: Accuchecks 07/03/20 07/03/20 07/02/20 11:40 05:29 20:18 POC Glucose 95 85 92 07/02/20 16:31 POC Glucose 89 Labs and MAR reviewed by [place] Hospitalist ROS - Review of Systems ENT: reports: other (Epistaxis) Cardiovascular: denies: chest pain, palpitations, orthopnea, paroxysmal noc. dyspnea, edema, light headedness - Medication Medications: Active Medications Generic Name Dose Route Start Last Admin Trade Name Freq PRN Reason Stop Dose Admin Acetaminophen 650 mg 06/21/20 18:09 07/02/20 18:32 Acetaminophen 325 Mg Tab PO 650 mg Q4H PRN Administration Headache/Fever/Mild Pain (1-3) Amlodipine Besylate 2.5 mg 06/23/20 09:00 07/03/20 09:05 Amlodipine 5 Mg Tab PO 2.5 mg DAILY CARISSA Administration Aspirin 81 mg 06/23/20 09:00 07/03/20 09:05 Aspirin Chewable 81 Mg Tab PO 81 mg DAILY CARISSA Administration Dextrose/Water 25 gm 06/22/20 09:00 06/22/20 08:20 Dextrose 50% Abboject 50 Ml Syringe IVP 25 gm PRN PRN Administration HYPOGLYCEMIA PROTOCOL Ferrous Sulfate 325 mg 06/27/20 17:00 07/03/20 09:05 Ferrous Sulfate 325 Mg Tab PO 325 mg BID-WM CARISSA Administration Fluticasone Propionate 0 gm 07/02/20 21:00 07/03/20 09:07 Fluticasone Propionate Nasal [place] 16 Gm Bottle NASAL 2 spr BID CARISSA Administration Gabapentin 100 mg 06/26/20 09:00 07/03/20 09:05 Gabapentin 100 Mg Cap PO 100 mg DAILY CARISSA Administration Metoprolol Succinate 25 mg 06/23/20 09:00 07/03/20 09:05 Metoprolol Succinate Xl 25 Mg Tab PO Not Given DAILY CARISSA Ondansetron HCl 4 mg 06/30/20 10:47 06/30/20 11:21 Ondansetron Pf 4 Mg/2 Ml Vial IVP 4 mg Q6H PRN Administration Nausea/Vomiting Pantoprazole Sodium 40 mg 06/29/20 21:00 07/03/20 09:04 Pantoprazole 40 Mg Vial IVP 40 mg Q12HR CARISSA Administration Sodium Chloride 10 ml 06/21/20 18:09 07/01/20 08:44 Flush - Normal Saline 10 Ml Syringe IVF 10 ml Q12H PRN Administration Saline Flush Sodium Chloride 10 ml 06/21/20 18:09 07/01/20 17:40 Flush - Normal Saline 10 Ml Syringe IVF 10 ml PRN PRN Administration Saline Flush Hospitalist Exam Vitals: Vital Signs (12 hours) Temp Pulse Resp BP Pulse Ox 07/03/20 09:05 86 07/03/20 08:15 98.1 F 86 15 102/57 L 96 07/03/20 08:00 96 Weight Admit Weight 170 lb Weight 170 lb General Appearance: awake alert ENT: moist mucosa Neck: supple Heart: RRR Respiratory: CTAB Respiratory - other findings: Diminished air entry bilateral bases Gastrointestinal: soft, non-tender Skin: no rashes Psychiatric: normal affect, normal behavior Hosp A/P - Plan Patient is a pleasant 83-year-old gentleman who was admitted to the hospital on June 21, 2020 for acute respiratory failure with hypoxia, secondary to pleural effusions. He also had lung nodules and liver mets, possibly rectal tumor. He was seen by pulmonology, oncology, cardiology and GI services. He underwent thoracentesis with improvement in symptoms pleural fluid cytology showed adenocarcinoma. He was seen by palliative care service. Arrangements are being made for hospice care at a nursing facility. Acute hypoxic respiratory failure secondary to lung adenocarcinoma vs pneumonia -Status post thoracentesis -Family trying to have hospice arranged at her assisted living facility Hyponatremia - possibly SIADH vs effusions -Sodium improved to 132 today. He is on 1.5L fluid restriction. Sodium did not improve with fluids either. -Currently asymptomatic. #Liver lesions #Left renal cyst - noted on CT abdomen. Outpatient follow up Epistaxis -Add humidifier to oxygen so acute, start [place] nasal spray. Dispo: son deciding on assisted living facility first, then set up hospice once that is arranged
--- NOTE | 2020-07-03 16:35 | PRG ---
DATE OF SERVICE: 07/03/2020 SUBJECTIVE: The patient is doing well. He has no acute complaints. OBJECTIVE: VITAL SIGNS: Temperature 98.1, O2 saturation 96%, pulse 86, blood pressure 102/57. HEENT: Unremarkable. NECK: No JVD. LUNGS: Fairly clear. CARDIAC: S1, S2. Regular. LABORATORY DATA: White blood cell count is 9.4, hematocrit 28, and platelet count 536. Sodium 132, potassium 4.4, BUN 14, creatinine 0.5, glucose 88. ASSESSMENT: Metastatic colon cancer, pleural effusion. PLAN: Comfort care. Dr. Quezada will recheck him next week. Job ID: [id number]
--- NOTE | 2020-07-03 17:04 | PRG ---
DATE OF SERVICE: 07/03/2020 SUBJECTIVE: Patient was seen and examined at bedside and overnight events noted. Patient denies any shortness of breath or chest pain or palpitation. No history of nausea or vomiting or diarrhea or fever or chills or cramps. OBJECTIVE: GENERAL: This is a well-built male, in no apparent distress. VITAL SIGNS: Temperature 98.1. Heart rate 63. Respiratory rate 15. Blood pressure 102/57. HEENT: Atraumatic, normocephalic. Oral mucosa is moist. NECK: Supple. CARDIOVASCULAR: S1, S2 heard. Rate and rhythm regular. RESPIRATORY: Clear to auscultation. GASTROINTESTINAL: Abdomen is soft. MUSCULOSKELETAL: No tenderness. No edema. DERMATOLOGIC: No skin rash. NEUROLOGIC: Alert and awake and oriented x3. No focal neurologic deficits. Moving all the extremities. PSYCHIATRIC: Mood and affect normal. LABORATORY DATA: Sodium 132, potassium 4.4, BUN is 14, and creatinine is 0.5. ASSESSMENT AND PLAN: 1. Hyponatremia secondary to syndrome of inappropriate antidiuretic hormone secretion limit fluid intake. Monitor sodium. 2. Edema, controlled. 3. Hypochloremia. 4. Acidosis. 5. Syndrome of inappropriate antidiuretic hormone secretion. 6. Lung cancer with metastasis. Repeat labs in the morning. Continue fluid restriction. We will follow. Job ID: [id number]
--- NOTE | 2020-07-03 17:14 | EKG ---
Test Reason : Blood Pressure : / mmHG Vent. Rate : 073 BPM Atrial Rate : 056 BPM P-R Int : 000 ms QRS Dur : 104 ms QT Int : 422 ms P-R-T Axes : 000 048 158 degrees QTc Int : 464 ms Atrial fibrillation Low voltage QRS Cannot rule out Anterior infarct , age undetermined Abnormal ECG Confirmed by GÉNESIS MORENO DO ([id number]), advertising editor VERONICA SIFUENTES ([id number]) on 07/03/2020 5:13:30 PM Referred By: Confirmed By:GÉNESIS MORENO DO
[2020-07-04 07:03] LABS: Anion Gap 13 mmol/L (10-20); BUN (Urea Nitrogen) 16 mg/dL (8.4-25.7); Calc. Creatinine Clearance 111 mL/min (70-130); Carbon Dioxide 24 mmol/L (23-31); Chloride 97 mmol/L (98-107); Glucose 89 mg/dL (83-110); Potassium 4.4 mmol/L (3.5-5.1); Sodium 130 mmol/L (136-145)
[2020-07-04] MEDS: Ferrous Sulfate 325 MG TAB PO SCH ×2 (08:21→17:27)
[2020-07-04] MEDS: Aspirin Chewable 81 MG TAB PO SCH (08:22)
[2020-07-04] MEDS: Gabapentin 100 MG CAP PO SCH (08:22)
[2020-07-04] MEDS: Fluticasone Propionate Nasal Spray 16 gm Bottle NASAL SCH ×2 (08:22→20:49)
[2020-07-04] MEDS: Amlodipine 5 MG TAB PO SCH (08:22)
[2020-07-04] MEDS: Pantoprazole 40 MG VIAL IVP SCH ×2 (08:23→20:48)
--- NOTE | 2020-07-04 13:38 | PRG ---
DATE OF SERVICE: 07/04/2020 SUBJECTIVE: Patient was seen and examined at bedside and overnight events noted. Patient denies any shortness of breath or chest pain or palpitation. No history of nausea or vomiting or diarrhea or fever or chills or cramps. OBJECTIVE: GENERAL: This is a well built male, in no apparent distress. VITAL SIGNS: Temperature 97.5, pulse 80, respirations , and blood pressure 113/65. HEENT: Atraumatic, normocephalic. Oral mucosa is moist. NECK: Supple. CARDIOVASCULAR: S1, S2 heard. Rate and rhythm regular. RESPIRATORY: Clear to auscultation. GASTROINTESTINAL: Abdomen is soft. MUSCULOSKELETAL: No tenderness. No edema. DERMATOLOGIC: No skin rash. NEUROLOGIC: Alert and awake and oriented x3. No focal neurologic deficits. Moving all the extremities. PSYCHIATRIC: Mood and affect normal. LABORATORY DATA: Sodium is 131. ASSESSMENT AND PLAN: 1. Hyponatremia, secondary to syndrome of inappropriate antidiuretic hormone secretion. Limit fluid intake. 2. Edema. 3. Hypochloremia. 4. Acidosis. 5. Syndrome of inappropriate antidiuretic hormone secretion. 6. Lung cancer with metastasis. 7. Hyponatremia secondary to syndrome of inappropriate antidiuretic hormone secretion responded to continue on fluid restriction. Monitor sodium. Job ID: [id number]
--- NOTE | 2020-07-04 17:13 | PDOC.HOSPP ---
- Subjective Encounter Date: 07/04/20 Encounter Time: 13:30 Subjective: Patient seen for follow-up of hypoxic respiratory failure. Denies any complaints today. - Objective Vital Signs & Weight: Vital Signs (12 hours) Temp Pulse Resp BP Pulse Ox 07/04/20 08:22 80 07/04/20 08:00 96 07/04/20 07:48 97.5 F L 80 20 113/65 96 Weight Admit Weight 170 lb Weight 170 lb Result Diagrams: 07/03/20 06:28 07/04/20 05:44 Additional Labs: Accuchecks 07/04/20 07/04/20 07/03/20 16:26 11:40 21:00 POC Glucose 98 81 88 I reviewed patient's labs and MAR Hospitalist ROS - Review of Systems Constitutional: denies: fever, chills, sweats, weakness, malaise Cardiovascular: denies: chest pain, palpitations, orthopnea, paroxysmal noc. dyspnea, edema, light headedness - Medication Medications: Active Medications Generic Name Dose Route Start Last Admin Trade Name Freq PRN Reason Stop Dose Admin Acetaminophen 650 mg 06/21/20 18:09 07/02/20 18:32 Acetaminophen 325 Mg Tab PO 650 mg Q4H PRN Administration Headache/Fever/Mild Pain (1-3) Amlodipine Besylate 2.5 mg 06/23/20 09:00 07/04/20 08:22 Amlodipine 5 Mg Tab PO 2.5 mg DAILY CARISSA Administration Aspirin 81 mg 06/23/20 09:00 07/04/20 08:22 Aspirin Chewable 81 Mg Tab PO 81 mg DAILY CARISSA Administration Dextrose/Water 25 gm 06/22/20 09:00 06/22/20 08:20 Dextrose 50% Abboject 50 Ml Syringe IVP 25 gm PRN PRN Administration HYPOGLYCEMIA PROTOCOL Ferrous Sulfate 325 mg 06/27/20 17:00 07/04/20 08:21 Ferrous Sulfate 325 Mg Tab PO 325 mg BID-WM CARISSA Administration Fluticasone Propionate 0 gm 07/02/20 21:00 07/04/20 08:22 Fluticasone Propionate Nasal [place] 16 Gm Bottle NASAL 2 spr BID CARISSA Administration Gabapentin 100 mg 06/26/20 09:00 07/04/20 08:22 Gabapentin 100 Mg Cap PO 100 mg DAILY CARISSA Administration Metoprolol Succinate 25 mg 06/23/20 09:00 07/04/20 08:21 Metoprolol Succinate Xl 25 Mg Tab PO Not Given DAILY CARISSA Ondansetron HCl 4 mg 06/30/20 10:47 06/30/20 11:21 Ondansetron Pf 4 Mg/2 Ml Vial IVP 4 mg Q6H PRN Administration Nausea/Vomiting Pantoprazole Sodium 40 mg 06/29/20 21:00 07/04/20 08:23 Pantoprazole 40 Mg Vial IVP 40 mg Q12HR CARISSA Administration Sodium Chloride 10 ml 06/21/20 18:09 07/01/20 08:44 Flush - Normal Saline 10 Ml Syringe IVF 10 ml Q12H PRN Administration Saline Flush Sodium Chloride 10 ml 06/21/20 18:09 07/01/20 17:40 Flush - Normal Saline 10 Ml Syringe IVF 10 ml PRN PRN Administration Saline Flush Hospitalist Exam Vitals: Vital Signs (12 hours) Temp Pulse Resp BP Pulse Ox 07/04/20 08:22 80 07/04/20 08:00 96 07/04/20 07:48 97.5 F L 80 20 113/65 96 Weight Admit Weight 170 lb Weight 170 lb General Appearance: awake alert ENT: moist mucosa Neck: supple, no JVD Heart: RRR Respiratory: CTAB Gastrointestinal: soft Skin: no rashes Psychiatric: normal affect Hosp A/P - Plan Patient is a pleasant 83-year-old gentleman who was admitted to the hospital on June 21, 2020 for acute respiratory failure with hypoxia, secondary to pleural effusions. He also had lung nodules and liver mets, possibly rectal tumor. He was seen by pulmonology, oncology, cardiology and GI services. He underwent thoracentesis with improvement in symptoms pleural fluid cytology showed adenocarcinoma. He was seen by palliative care service. Arrangements are being made for hospice care at a nursing facility. Acute hypoxic respiratory failure secondary to lung adenocarcinoma vs pneumonia -Status post thoracentesis -Awaiting hospice care at assisted living Hyponatremia - possibly SIADH vs effusions -Sodium 130 today. He is on 1.5L fluid restriction. Sodium did not improve with fluids either. -Currently asymptomatic. #Liver lesions #Left renal cyst - noted on CT abdomen. Outpatient follow up Epistaxis -Resolved after adding humidifier to oxygen circuit. Patient also has as needed [place] nasal spray. Dispo: son deciding on assisted living facility first, then set up hospice once that is arranged
[2020-07-05] MEDS: Aspirin Chewable 81 MG TAB PO SCH (08:32)
[2020-07-05] MEDS: Ferrous Sulfate 325 MG TAB PO SCH ×2 (08:32→18:15)
[2020-07-05] MEDS: Amlodipine 5 MG TAB PO SCH (08:33)
[2020-07-05] MEDS: Gabapentin 100 MG CAP PO SCH (08:33)
[2020-07-05] MEDS: Pantoprazole 40 MG VIAL IVP SCH ×2 (08:35→20:48)
[2020-07-05] MEDS: Fluticasone Propionate Nasal Spray 16 gm Bottle NASAL SCH (08:35)
[2020-07-05] MEDS ORDERED: Sodium Chloride 0.65% Nasal 44 ML BOT EA NARE PRN (09:21)
--- NOTE | 2020-07-05 09:36 | PRG ---
DATE OF SERVICE: 07/05/2020 SUBJECTIVE: Tevin Rodas is an 84-year-old gentleman, who says he is doing well. Less short of breath. OBJECTIVE: VITAL SIGNS: Temperature 97, pulse 78, respiratory rate 16, sats 90% on 2 L, blood pressure 107/53. CHEST: No wheezing. No crackles. CARDIAC: Normal S1. ABDOMEN: No masses. ASSESSMENT AND PLAN: Metastatic CA to the lung, pleural effusion, hypertension. He is a DNR. I have given some saline nasal spray for his epistaxis. [facility]. Job ID: [id number]
[2020-07-05 16:09] LABS: SARS-CoV-2 PCR by NAA Not Detected (NotDetected)
--- NOTE | 2020-07-05 18:17 | PDOC.HOSPP ---
- Subjective Encounter Date: 07/05/20 Encounter Time: 11:30 Subjective: Patient seen in follow-up for hypoxic respiratory failure. He denies any chest pain or shortness of breath. - Objective Vital Signs & Weight: Vital Signs (12 hours) Temp Pulse Resp BP Pulse Ox 07/05/20 08:33 78 07/05/20 08:00 94 L 07/05/20 07:34 97.9 F 78 16 107/53 L 94 L Weight Admit Weight 170 lb Weight 170 lb Result Diagrams: 07/03/20 06:28 07/04/20 05:44 Additional Labs: Accuchecks 07/05/20 07/05/20 07/05/20 16:40 11:48 05:32 POC Glucose 95 79 87 07/04/20 20:28 POC Glucose 86 Labs and MAR reviewed by [place] Hospitalist ROS - Review of Systems Cardiovascular: denies: chest pain, palpitations, orthopnea, paroxysmal noc. dyspnea, edema, light headedness Neurological: denies: weakness, numbness, incoordination, change in speech, confusion, seizures - Medication Medications: Active Medications Generic Name Dose Route Start Last Admin Trade Name Freq PRN Reason Stop Dose Admin Acetaminophen 650 mg 06/21/20 18:09 07/02/20 18:32 Acetaminophen 325 Mg Tab PO 650 mg Q4H PRN Administration Headache/Fever/Mild Pain (1-3) Amlodipine Besylate 2.5 mg 06/23/20 09:00 07/05/20 08:33 Amlodipine 5 Mg Tab PO 2.5 mg DAILY CARISSA Administration Aspirin 81 mg 06/23/20 09:00 07/05/20 08:32 Aspirin Chewable 81 Mg Tab PO 81 mg DAILY CARISSA Administration Dextrose/Water 25 gm 06/22/20 09:00 06/22/20 08:20 Dextrose 50% Abboject 50 Ml Syringe IVP 25 gm PRN PRN Administration HYPOGLYCEMIA PROTOCOL Ferrous Sulfate 325 mg 06/27/20 17:00 07/05/20 08:32 Ferrous Sulfate 325 Mg Tab PO 325 mg BID-WM CARISSA Administration Gabapentin 100 mg 06/26/20 09:00 07/05/20 08:33 Gabapentin 100 Mg Cap PO 100 mg DAILY CARISSA Administration Metoprolol Succinate 25 mg 06/23/20 09:00 07/05/20 08:33 Metoprolol Succinate Xl 25 Mg Tab PO 25 mg DAILY CARISSA Administration Ondansetron HCl 4 mg 06/30/20 10:47 06/30/20 11:21 Ondansetron Pf 4 Mg/2 Ml Vial IVP 4 mg Q6H PRN Administration Nausea/Vomiting Pantoprazole Sodium 40 mg 06/29/20 21:00 07/05/20 08:35 Pantoprazole 40 Mg Vial IVP 40 mg Q12HR CARISSA Administration Sodium Chloride 10 ml 06/21/20 18:09 07/01/20 08:44 Flush - Normal Saline 10 Ml Syringe IVF 10 ml Q12H PRN Administration Saline Flush Sodium Chloride 10 ml 06/21/20 18:09 07/01/20 17:40 Flush - Normal Saline 10 Ml Syringe IVF 10 ml PRN PRN Administration Saline Flush Hospitalist Exam Vitals: Vital Signs (12 hours) Temp Pulse Resp BP Pulse Ox 07/05/20 08:33 78 07/05/20 08:00 94 L 07/05/20 07:34 97.9 F 78 16 107/53 L 94 L Weight Admit Weight 170 lb Weight 170 lb General Appearance: awake alert ENT: normocephalic atraumatic, no oropharyngeal lesions Neck: symmetric, no JVD Heart: RRR Respiratory: CTAB Gastrointestinal: soft Skin: no rashes Psychiatric: normal affect Hosp A/P - Plan Patient is a pleasant 83-year-old gentleman who was admitted to the hospital on June 21, 2020 for acute respiratory failure with hypoxia, secondary to pleural effusions. He also had lung nodules and liver mets, possibly rectal tumor. He was seen by pulmonology, oncology, cardiology and GI services. He underwent thoracentesis with improvement in symptoms pleural fluid cytology shanell wed adenocarcinoma. He was seen by palliative care service. Arrangements are being made for hospice care at a nursing facility. Acute hypoxic respiratory failure secondary to lung adenocarcinoma vs pneumonia -Status post thoracentesis -Awaiting hospice care at assisted living, will likely be discharged tomorrow. Hyponatremia - possibly SIADH vs effusions -Stable, asymptomatic. #Liver lesions #Left renal cyst - noted on CT abdomen. Outpatient follow up Epistaxis -Resolved Dispo: Likely discharge tomorrow. Patient's COVID-19 test is negative.
[2020-07-06] MEDS: Acetaminophen 325 MG TAB PO PRN (07:08)
[2020-07-06 07:59] VITALS: BP 92/53; TEMP 97.9
[2020-07-06] MEDS: Ferrous Sulfate 325 MG TAB PO SCH (08:44)
[2020-07-06] MEDS: Aspirin Chewable 81 MG TAB PO SCH (08:44)
[2020-07-06] MEDS: Pantoprazole 40 MG VIAL IVP SCH (08:44)
[2020-07-06] MEDS: Gabapentin 100 MG CAP PO SCH (08:44)
[2020-07-06] MEDS: Amlodipine 5 MG TAB PO SCH (08:45)
[2020-07-06] MEDS ORDERED: Fluticasone Propionate Nasal Spray 16 gm Bottle NASAL SCH (09:00)
--- NOTE | 2020-07-06 10:08 | PRG ---
DATE OF SERVICE: 07/06/2020 OBJECTIVE: VITAL SIGNS: Temperature 97, pulse 68, sats 90% on nasal O2, blood pressure 90/60. GENERAL: Awake, alert, responsive. CHEST: No wheezing. No crackles. CARDIAC: Normal S1, S2. ASSESSMENT: Metastatic colon cancer; left pleural effusion; right pleural effusion, stable. He has been approved for hospice care. He appears pulmonary martin stable. Job ID: [id number]
--- NOTE | 2020-07-06 10:41 | PDOC.DS.DS ---
Provider Date of Admission: 06/21/20 15:29 Date of Discharge: 07/06/20 Admitting Provider: Himanshu Slater MD Consultations: Gastroentrology (Dr. Cotto), Nephrology (Dr. Craig), Oncology (Ms. Sally Mct), Pulmonary (Dr. Quezada) Primary Care Physician: Vijay Muro MD Course Hospital Course: Discharge diagnosis: 1. Malignant pleural effusion 2. Liver and lung metastases 3. Hyponatremia 4. Likely rectal cancer 5. COVID-19 test negative 6. Iron deficiency 7. Left renal cyst Hospital course: Patient is a pleasant 84-year-old gentleman who was admitted to the hospital on June 21, 2020 for acute hypoxic respiratory failure, lung metastases and weight loss. He was found to have metastases in lung and liver, primary unknown, possibly rectal tumor. He was seen by gastroenterology, pulmonology and nephrology services. He was also seen by cardiology service for suspected congestive heart failure because of the pleural effusion. He underwent thoracentesis. Pathology report showed adenocarcinoma. Palliative care service was involved. After discussion with family, patient and family wish to the hospice care. Arrangements are being made for hospice care at an assisted living facility. Many thanks for allowing me to participate in your patient's care. Please feel free to contact me with any questions or concerns. Discharge destination: Assisted living for hospice care Total amount of time spent coordinating this discharge: 33 minutes Resuscitation Status: 06/22/20 11:23 Resuscitation Status Routine Resuscitation Status: DNAR: NO Resuscitation Discussed with: confirmed with pt himself, consent signed Lab Results: 07/03/20 06:28 07/04/20 05:44 Microbiology - Entire Visit 06/28/20 23:46 Stool - Liquid Stool Occult Blood (WHIT) - Final 06/22/20 10:30 Pleural fluid Body Fluid Culture - Final 06/22/20 10:30 Pleural fluid Direct Acid Fast Bacilli Smear - Final 06/22/20 10:30 Pleural fluid Acid Fast Bacilli Smear - Final 06/22/20 10:30 Pleural fluid Acid Fast Bacilli Culture - Preliminary Specimen has been received and culture in progress. No Growth to date. 06/22/20 09:30 Stool Stool Occult Blood (WHIT) - Final Vitals: Vital Signs (12 hours) Temp Pulse Resp BP Pulse Ox 07/06/20 08:45 68 07/06/20 07:56 97.9 F 68 17 92/53 L 96 Weight Admit Weight 170 lb Weight 170 lb Physical Exam: The patient was seen and examined on the day of discharge. Patient denies chest pain or shortness of breath. Vital signs are stable. S1 and S2 are heard. Lungs are clear to auscultation bilaterally. Plan Prescriptions: Ferrous Sulfate [Feosol] 325 mg PO BID #60 tab Gabapentin 100 mg PO DAILY #30 capsule Pantoprazole [Protonix] 40 mg PO BID #60 tab Home Medications: Medication Instructions Recorded Confirmed Type Amlodipine [Norvasc] 2.5 mg PO DAILY 06/22/20 06/22/20 History Aspirin [Ivan Chewable] 81 mg PO DAILY 06/22/20 06/22/20 History Metoprolol Succinate [Toprol XL] 25 mg PO DAILY 06/22/20 06/22/20 History Ferrous Sulfate [Feosol] 325 mg PO BID #60 tab 07/06/20 Rx Gabapentin 100 mg PO DAILY #30 capsule 07/06/20 Rx Pantoprazole [Protonix] 40 mg PO BID #60 tab 07/06/20 Rx Allergies: No Known Allergies Allergy (Verified 06/21/20 17:41) Activity:: Activity as Tolerated Nourishment:: Heart Healthy Diet Referrals: Dante Quezada MD [Active] - Vijay Muro MD [Primary Care Provider] - Josh Cotto MD [Active] - Aashish Padilla MD [Active] - Raghav Garcia MD [Active] - Disposition: HOME Quality CORE MEASURES:: N/A
== END 2020-07-06 14:18 | DRG 180 ==
LOC: ERS 10:23 → ERHOLD 15:29 → 2NO 18:37 → T4-B 06-23 13:22
PROVIDERS: ADMIT Internal Medicine; ATTEND Internal Medicine
PROC: 0W993ZZ Drainage of Right Pleural Cavity, Percutaneous Approach (ICD-10-PCS; principal; 2020-06-22)
DX: C78.00 Secondary malignant neoplasm of unspecified lung (principal); J96.01 Acute respiratory failure with hypoxia; E43 Unspecified severe protein-calorie malnutrition; J18.9 Pneumonia, unspecified organism; C78.7 Secondary malignant neoplasm of liver and intrahepatic bile duct; C20 Malignant neoplasm of rectum; R64 Cachexia; E22.2 Syndrome of inappropriate secretion of antidiuretic hormone; E87.2 Acidosis; J91.0 Malignant pleural effusion; J44.0 Chronic obstructive pulmonary disease with (acute) lower respiratory infection; Z51.5 Encounter for palliative care; Z66 Do not resuscitate; Z20.822 Contact with and (suspected) exposure to COVID-19; I11.0 Hypertensive heart disease with heart failure; L89.152 Pressure ulcer of sacral region, stage 2; E78.5 Hyperlipidemia, unspecified; R29.6 Repeated falls; Z77.090 Contact with and (suspected) exposure to asbestos; K21.9 Gastro-esophageal reflux disease without esophagitis; I34.0 Nonrheumatic mitral (valve) insufficiency; R59.1 Generalized enlarged lymph nodes; D50.9 Iron deficiency anemia, unspecified; I48.91 Unspecified atrial fibrillation; I50.9 Heart failure, unspecified; Z90.49 Acquired absence of other specified parts of digestive tract; Z79.899 Other long term (current) drug therapy; Z79.82 Long term (current) use of aspirin; Z68.23 Body mass index [BMI] 23.0-23.9, adult; R13.10 Dysphagia, unspecified; E87.8 Other disorders of electrolyte and fluid balance, not elsewhere classified
CPT/HCPCS: 36415; 36416; 70450; 71045; 71260; 74177; 80048; 80053; 82150; 82248; 82274; 82378; 82550; 82607; 82728; 82746; 82945; 83540; 83550; 83615; 83690; 83735; 83880; 83930; 83935; 83986; 84157; 84478; 84484; 85025; 85027; 85060; 87070; 87116; 87205; 87206; 87635; 88112; 88305; 89051; 93005; 96374; C9113; J1642; J1940; J2405; J2916; J3490; Q9967; U0003; U0005

== ENCOUNTER 2020-07-15 00:23 | Emergency (ER) | payer MEDICARE ==
[2020-07-15] MEDS ORDERED: Oxymetazoline HCl 0.05% (30 ML BOT) ONE (00:45)
== END 2020-07-15 02:10 ==
LOC: ERS 00:23
DX: R04.0 Epistaxis (principal); E78.5 Hyperlipidemia, unspecified; I10 Essential (primary) hypertension; Z79.899 Other long term (current) drug therapy